=== PATIENT | female | born 1940 | race Caucasian/White ===

== ENCOUNTER → 2022-05-25 06:54 | Outpatient (CLI) | payer MEDICARE, MEDICAID, SELFPAY ==
--- NOTE | 2022-05-25 08:41 | HMH.ITSHM ---
Current Home Medications as stated by this patient Belkis Nuñez or insurance healthcare representative. []TRAMADOL SIMVASTATIN OBYBUTYNIN OMEPRAZOLE MAGNESIUM FUROSEMIDE DOCUSATE VITAMIN D3 ASA ACETAMINOPHEN
[2022-05-25 11:10] LABS: Anion Gap 9.2 mEq/L (5-15); Blood Urea Nitrogen 21 mg/dl (7-17); Calcium 8.9 mg/dl (8.4-10.2); Carbon Dioxide 28 mmol/L (22.0-30.0); Chloride 102 mmol/L (98-107); Estimated Glomerular Filt Rate 60 ml/min (>60); GFR (African American) 73 ML/MIN (>60); Glucose 120 mg/dl (74-100); Potassium 4.2 mmoL/L (3.5-5.1); Sodium 135 mmol/L (136-145)
== END ==
PROVIDERS: PCP Emergency Medicine; Visit Provider Nurse Practitioner Family
DX: E78.5 Hyperlipidemia, unspecified (principal); R60.0 Localized edema; R63.5 Abnormal weight gain; R94.31 Abnormal electrocardiogram [ECG] [EKG]
CPT/HCPCS: 36415; 78452; 80048; 93017; 93306; A9502; J2785

== ENCOUNTER 2023-11-16 06:04 | Inpatient (IN) | payer MEDICARE, MEDICAID, SELFPAY ==
[2023-11-16] VITALS (58 sets, daily range): BP systolic 83–128; BP diastolic 48–87; PULSE 72–121; RESP 16–22; TEMP 36.8–39; O2SAT 60–100; BMI 27.6
[2023-11-16] MEDS: ETOMIDATE 40MG/20ML VIAL 30 MG IV (06:02)
--- NOTE | 2023-11-16 06:03 | ECG_ITS ---
APPROVED REPORT Exam: Resting ECG HR:112 bpm ECG Measurements Heart Rate 112 AXES NH 170 P 68 QRSd 86 QRS -30 QT 334 T 69 QTc 400 Conclusion SINUS TACHYCARDIA Atrial abnormality POSSIBLE ANTERIOR MYOCARDIAL INFARCTION , PROBABLY OLD [30 ms Q WAVE IN V3/V4, OR R < 0.2 mV IN V4] ABNORMAL RHYTHM ECG UNCONFIRMED REPORT Electronically signed by : Ismael Rangel MD 11/17/2023 07:49:15
--- NOTE | 2023-11-16 06:05 | XR_ITS ---
PROCEDURE INFORMATION: Exam: XR Chest Exam date and time: 11/16/2023 6:02 AM Age: 83 years old Clinical indication: Shortness of breath; Additional info: SOA TECHNIQUE: Imaging protocol: Radiologic exam of the chest. Views: 1 view. COMPARISON: No relevant prior studies available. FINDINGS: Tubes, catheters and devices: An endotracheal catheter is noted with its tip around the level just below the thoracic inlet. Lungs: There is patchy airspace disease and interstitial thickening in the right lung base. Pleural spaces: Unremarkable. No pleural effusion. No pneumothorax. Heart/Mediastinum: Unremarkable. No cardiomegaly. Bones/joints: Unremarkable. IMPRESSION: Right basilar pneumonia.
[2023-11-16] MEDS: IPRATROPIUM/ALBUTEROL 3 ML NEB 9 ML IH (06:20)
[2023-11-16 06:25] LABS: Basophils # 0.1 K/mm3 (0-0.2); Basophils % 0.4 % (0.1-2.0); Eosinophils # 0.1 K/mm3 (0.0-0.4); Eosinophils % 0.4 % (0.1-12.0); Hematocrit 42.8 % (37.0-47.0); Hemoglobin 14.2 g/dL (12.2-16.2); Lymphocytes # 1.6 K/mm3 (0.7-4.5); Lymphocytes % 6.9 % (10-50); Mean Corpuscular HGB Conc 33.3 g/dL (31.8-35.4); Mean Corpuscular Hemoglobin 30.7 pg (27.0-31.2); Mean Corpuscular Volume 92.1 fl (81-99); Mean Platelet Volume 8.4 fl (7.4-10.4); Monocytes # 0.3 K/mm3 (0.1-1.0); Monocytes % 1.4 % (1.7-9.3); Neutrophils # 20.5 K/mm3 (1.8-7.8); Neutrophils % 90.9 % (37.0-80.0); Platelet Count 343 K/mm3 (142-424); Red Blood Count 4.64 M/mm3 (4.20-5.40); Red Cell Distribution Width 13.9 % (11.5-17.5); White Blood Count 22.6 K/mm3 (4.8-10.8)
[2023-11-16 06:25] LABS: VBG Base Excess -7.6 mmol/L (-2.4-2.3); VBG HCO3 19.7 mmol/L (23-30); VBG Oxygen Saturation 89.2 % (50-70); VBG PCO2 46.9 mmol/L (35-51); VBG PH 7.24 mmol/L (7.31-7.41); VBG PO2 63.3 mmol/L (28-40); VBG Total CO2 21.2 mmol/L (23-27)
[2023-11-16 06:27] LABS: MANUAL DIFFERENTIAL MANUAL DIFFERENTIAL (MANUAL DIFF)
--- NOTE | 2023-11-16 06:30 | XR_ITS ---
PROCEDURE INFORMATION: Exam: XR Chest Exam date and time: 11/16/2023 6:17 AM Age: 83 years old Clinical indication: Device placement; Ng tube; Additional info: Og tube placement TECHNIQUE: Imaging protocol: Radiologic exam of the chest. Views: 1 view. COMPARISON: CR XR CHEST PORTABLE 11/16/2023 6:02 AM FINDINGS: Tubes, catheters and devices: An endotracheal catheter seen with its tip overlying the level just below the thoracic inlet. An enteric catheter extends to the abdomen, tip overlying left upper quadrant. Lungs: There is peripheral opacity in the left upper lobe. Pleural spaces: Unremarkable. No pleural effusion. No pneumothorax. Heart/Mediastinum: Unremarkable. No cardiomegaly. Bones/joints: Unremarkable. IMPRESSION: Support lines and catheters in place as described. Apparent interval development of left upper lobe consolidation.
[2023-11-16] MEDS: SUCCINYLCHOLINE 20MG/ML 10 ML MDV 100 MG IV (06:39)
[2023-11-16] MEDS: propofoL 100 ML 4.65000000000000036 MG IV (06:39)
[2023-11-16] MEDS: VANCOMYCIN CONSULT REQUEST 1 EACH NOTAPPLIC (06:43)
--- NOTE | 2023-11-16 06:44 | PC.NURSE ---
30 of etomidate given at 602 100 of succ given at 602 [place]ub[place] [address] Contreras with a 7.5 ET Tube 7.5 at the lip.
[2023-11-16 06:45] LABS: Lymphocytes % 8 % (10-50); Monocytes % 1 % (2-9); Neutrophils % 91 % (42-76); Platelet Estimate Normal; RBC Morphology Normal; Total Cells Counted 100
[2023-11-16 06:46] LABS: Chloride 103 mmol/L (98-107); Sodium 138 mmol/L (136-145)
[2023-11-16 06:47] LABS: Potassium 4.3 mmoL/L (3.5-5.1)
[2023-11-16] MEDS: METRONIDAZ/SOD CHL 500 MG/100 ML PIGGYBACK 100 MG IV (06:47)
[2023-11-16] MEDS: METHYLPREDNISOLONE SOD SUCC 125MG VIAL 125 MG IV (06:47)
[2023-11-16 06:49] LABS: Alanine Aminotransferase 52 U/L (12-78); Albumin Level 4.2 g/dl (3.5-5.0); Alkaline Phosphatase 93 U/L (38-126); Anion Gap 17.3 mEq/L (5-15); Aspartate Amino Transferase 72 U/L (14-36); Bilirubin,Direct 0.3 mg/dl (0.0-0.4); Bilirubin,Total 1.3 mg/dl (0.2-1.3); Blood Urea Nitrogen 18 mg/dl (7-17); Calcium 8.2 mg/dl (8.4-10.2); Carbon Dioxide 22 mmol/L (22.0-30.0); Creatinine Clearance Estimated 52 mL/min (50-200); Estimated Glomerular Filt Rate 60 ml/min (>60); GFR (African American) 72 ML/MIN (>60); Glucose 205 mg/dl (74-100); Total Protein,Serum 7.5 g/dl (6.3-8.2)
[2023-11-16 06:50] LABS: Magnesium 1.8 mg/dl (1.6-2.3)
--- NOTE | 2023-11-16 06:51 | ED_ITS ---
Discharge Plan Disposition Condition: Critical Chief Complaint: Shortness of Breath/Dyspnea Prescriptions Prescriptions: No Action Tylenol Extra Strength 500 mg powder in packet 500 mg PO Q4H PRN polyethylene glycol 3350 [Miralax] 17 gram powder in packet 17 g PO DAILY dextromethorphan-guaifenesin [Robafen DM Cough-Chest Congest] 10-100 mg/5 mL syrup 10 ml PO Q4H PRN aspirin 81 mg tablet,chewable 81 mg PO DAILY omeprazole 40 mg capsule,delayed release(DR/EC) 40 mg PO DAILY oxybutynin chloride 5 mg tablet 5 mg PO BID simvastatin 40 mg tablet 40 mg PO HS cholecalciferol (vitamin D3) 10 mcg (400 unit) capsule 10 mcg PO DAILY furosemide [Lasix] 20 mg tablet 20 mg PO DAILY Qty: 90 3RF Gaviscon 95-358 mg/15 mL suspension 30 ml PO BID PRN lactulose 10 gram/15 mL solution 20 g PO DAILY PRN (Reason: constipation) dextromethorphan-guaifenesin [Robafen DM Cough-Chest Congest] 10-100 mg/5 mL syrup 10 ml PO Q4H PRN (Reason: cough) magnesium oxide [MagOx] 400 mg (241.3 mg magnesium) tablet 400 mg PO BID multivitamin Tablet 1 tab PO DAILY sennosides-docusate sodium [Senexon-S] 8.6-50 mg tablet 2 tab-cap PO BID ascorbate calcium (vitamin C) 500 mg tablet 500 mg PO BID tramadol 50 mg tablet 50 mg PO BID PRN (Reason: pain) Qty: 60 0RF Referrals Follow up/Referrals: Provider,Referral, MD [Primary Care Provider] - See instructions Clinical Impressions Clinical Impression: Acute hypoxemic respiratory failure, Sepsis, Nausea & vomiting, Acidosis, lactic Discharge ED Provider: Tyra Contreras HPI General Chief Complaint: Shortness of Breath/Dyspnea Stated Complaint: low o2 Time Seen by Provider: 11/16/23 06:06 Mode of Arrival: EMS Source of Information: EMS Limitations: Altered Mental Status Description of Symptoms (Recalled from ER Triage Doc. by RN): Patient came from [facility] for possible aspiration and difficulty breathing. Patient was in resp distress and AMS on arrival. History of Present Illness HPI narrative: This patient is an 83-year-old female with a history of type 2 diabetes, hypertension, hyperlipidemia, renal insufficiency, incontinence, failure to thrive, bilateral lower extremity edema, and general debility presenting to the emergency department from intermediate for evaluation with concern for respi ratory distress. According to report called from the nursing facility, the patient was rounded on this morning was found to be in significant respiratory distress. She had vomited multiple times during the night and they were concerned that she had potentially aspirated. They noted that her oxygen saturation on room air was in the 40s. They stated they were unable to machine operator picker an oxygen saturation once they put her on oxygen. They called EMS, who noted that when they arrived on scene, the patient was in obvious respiratory distress with a respiratory rate in the 50s. She was hypoxic with oxygen saturation of 80% on 6 L nasal cannula, so they put her on CPAP mask. EMS notes that she was initially able to answer questions, however her mental status declined rapidly upon arrival. Patient is unable to contribute to history given acuity of condition. According to the intermediate, the patient is a full code and is typically alert and oriented x 3. Her daughter in [place] is her power of commercial attorney. Related Data Home Medications Medication Instructions Recorded Confirmed acetaminophen 500 mg oral powder 500 mg PO Q4H PRN 05/09/22 02/20/23 packet (Tylenol Extra Strength) aspirin 81 mg chewable tablet 81 mg PO DAILY 05/09/22 02/20/23 cholecalciferol (vitamin D3) 10 10 mcg PO DAILY 05/09/22 02/20/23 mcg (400 unit) capsule dextromethorphan-guaifenesin 10 10 ml PO Q4H PRN 05/09/22 02/20/23 mg-100 mg/5 mL oral syrup (Robafen DM Cough-Chest Congestion) omeprazole 40 mg capsule,delayed 40 mg PO DAILY 05/09/22 02/20/23 release oxybutynin chloride 5 mg tablet 5 mg PO BID 05/09/22 02/20/23 polyethylene glycol 3350 17 gram 17 g PO DAILY 05/09/22 02/20/23 oral powder packet (Miralax) simvastatin 40 mg tablet 40 mg PO HS 05/09/22 02/20/23 aluminum hydrox-magnesium carb 95 30 ml PO BID PRN 10/27/23 mg-358 mg/15 mL oral suspension (Gaviscon) ascorbate calcium (vitamin C) 500 500 mg PO BID 10/27/23 mg tablet dextromethorphan-guaifenesin 10 10 ml PO Q4H PRN cough 10/27/23 mg-100 mg/5 mL oral syrup (Robafen DM Cough-Chest Congestion) lactulose 10 gram/15 mL oral 20 g PO DAILY PRN constipation 10/27/23 solution magnesium oxide 400 mg (241.3 mg 400 mg PO BID 10/27/23 magnesium) tablet (MagOx) multivitamin 1 tab PO DAILY 10/27/23 sennosides 8.6 mg-docusate sodium 2 tab-cap PO BID 10/27/23 50 mg tablet (Senexon-S) Previous Rx's Medication Instructions Recorded furosemide 20 mg tablet (Lasix) 20 mg PO DAILY #90 tabs 05/09/22 tramadol 50 mg tablet 50 mg PO BID PRN pain #60 tabs 11/16/23 Allergies Allergy/AdvReac Type Severity Reaction Status Date / Time meloxicam [From Mob] AdvReac Verified 10/27/23 10:59 Penicillins AdvReac Verified 10/27/23 10:59 PFSH [facility] Disclaimer: The information contained in this section may have been updated after the patient was seen, as this information can be updated by other users. Medical History Constipation Diabetes mellitus Difficulty walking Failure to thrive Gastroesophageal reflux disease Hyperlipidemia Incontinence in female Malnutrition Pressure ulcer Renal failure Tobacco use Social History Smoking Status: Unknown if ever smoked alcohol intake: never current occupational status: retired Travel in the last 8 weeks: None household members: caregiver housing: intermediate ROS Obtained: Yes unobtainable due to mental status Physical Exam General General appearance: lethargic and in distress Comment: Initially responded to voice and answered with her name, became unresponsive and did not follow commands shortly after arrival. Critically ill with acute respiratory distress Head Head exam: atraumatic and normocephalic Eye Eye exam: Present normal appearance, PERRL and EOMI ENT ENT exam: Present mucous membranes dry Neck Neck exam: Present normal inspection Chest Chest inspection: Present normal inspection and symmetric chest wall rise Respiratory Respiratory exam: Present respiratory distress, wheezes, accessory muscle use, prolonged expiratory phase and other (Tachypnea on CPAP per EMS, bilateral wheezing with coarse ronchi in RLL) Cardiovascular Cardiovascular exam: Present normal rhythm and tachycardia Abdominal Exam Abdominal exam: Present soft; Absent distention, tenderness, guarding or rebound Extremities Exam Extremities exam: Present edema (BLE edema noted) Back Exam Back exam: Present normal inspection Neurological Exam Neurological exam: Absent alert Expanded Neurological Exam Coma scale eye opening: To pain Coma scale motor response: Withdraws to pain Coma scale verbal response: Incomprehensible Coma scale total: 8 Skin Skin exam: Present warm and dry HEART Score HEART Score HEART Score assessment performed?: Yes History (anamnesis): Moderately suspicious ECG: Non-specific disturbance Age: >65 years Risk factors: 3 or more risk factors Troponin: </= normal limit HEART Score: 6 Procedures Intubation Mallampati Score:: Class II Time out performed: Yes sedative: Etomidate Mg Given: 30 paralytic: Succinylcholine Mg Given: 100 Laryngoscope: other (video-assisted) ET Tube Size: 7.5 ET Tube Uncuffed: No Tube Secured Depth (cm): 20 Tube Secured Location: lips Tube Placement Confirmation: visualized tube passing through cords, equal breath sounds bilaterally, no breath sounds over epigastrium and confirmation by capnometry Patient Tolerated Procedure: well and no complications Intubation Complications: none Critical Care Critical Care Time Critical Care Time: Yes Attestation: On 11/16/23, the high probability of a clinically significant, sudden or life th reatening deterioration of the following system(s) (respiratory, cardiovascular, neurologic, gastrointestinal) required my full and direct attention, intervention and personal management. The time I documented below is in addition to time spent performing reported procedures but includes the following listed in this critical care notation. Total Time Total Critical Care Time: 65 Medical Decision Making Medical Records Medical records reviewed: Yes I reviewed the patient's medical records. Surya Inquiry Pt receiving controlled substance: No Vital Signs Vital Signs: 11/16/23 06:04 11/16/23 06:20 11/16/23 06:20 Temperature 102.2 F H Temperature Source Rectal Pulse Rate 118 H 112 H Pulse Rate [Radial] 115 H Respiratory Rate 18 Blood Pressure [Right Arm] 122/67 Blood Pressure Mean [Right Arm] 85 Blood Pressure Source [Right Arm] Automatic Cuff Blood Pressure Position [Right Arm] Supine 02 Sat by Pulse Oximetry 95 Oxygen Delivery Method Mechanical Ventilation 11/16/23 06:10 Temperature Temperature Source Pulse Rate Pulse Rate [Radial] Respiratory Rate 18 Blood Pressure [Right Arm] Blood Pressure Mean [Right Arm] Blood Pressure Source [Right Arm] Blood Pressure Position [Right Arm] 02 Sat by Pulse Oximetry 97 Oxygen Delivery Method Lab Data Labs: Lab Results 11/16/23 06:00: WBC 22.6 H*, RBC 4.64, Hgb 14.2, Hct 42.8, MCV 92.1, MCH 30.7, MCHC 33.3, RDW 13.9, Plt Count 343, MPV 8.4, Neut % (Auto) 90.9 H, Lymph % (Auto) 6.9 L, [place] % (Auto) 1.4 L, Eos % (Auto) 0.4, Baso % (Auto) 0.4, Neut # (Auto) 20.5 H, Lymph # (Auto) 1.6, [place] # (Auto) 0.3, Eos # (Auto) 0.1, Baso # (Auto) 0.1, Total Counted 100, Neutrophils % (Manual) 91 H, Lymphocytes % (Manual) 8 L, Monocytes % (Manual) 1 L, Platelet Estimate Normal, RBC Morphology Normal, Sodium 138, Potassium 4.3, Chloride 103, Carbon Dioxide 22, Anion Gap 17.3 H, BUN 18 H, Creatinine 0.90, Estimated Creat Clear 52, Estimated GFR 60, Est GFR ( Amer) 72, Glucose 205 H, Lactate 4.4 H, Calcium 8.2 L, Magnesium 1.8, Total Bilirubin 1.3, Direct Bilirubin 0.3, Conjugated Bilirubin 0.0, Indirect Bilirubin 1.0 H, Unconjugated Bilirubin 1.0, AST 72 H, ALT 52, Alkaline Phosphatase 93, Troponin I < 0.01, NT-Pro-B Natriuret Pep 591 H, Total Protein 7.5, Albumin 4.2 11/16/23 06:05: VBG pH 7.24 L, VBG pCO2 46.9, VBG pO2 63.3 H, VBG HCO3 19.7 L, VBG Total CO2 21.2 L, VBG O2 Saturation 89.2 H, VBG Base Excess -7.6 L 11/16/23 07:10: Specimen Source L brachial, O2 % 60%, ABG pH 7.44, ABG pCO2 25.9 L, ABG pO2 97.6, ABG HCO3 17.0 L, ABG Total CO2 17.8 L, ABG O2 Saturation 98, ABG Base Excess -7.2 L, Vent Rate 18, Tidal Volume 420, PEEP 8 11/16/23 06:00 11/16/23 06:00 Response Orders (Tests/Meds): ED MEDICATIONS Generic Name Dose Route Start Last Admin Trade Name Freq PRN Reason Stop Dose Admin Propofol 100 mls @ 4.654 mls/hr 11/16/23 06:15 11/16/23 06:45 Diprivan 10mg/Ml 100ml Bottle IV 12/16/23 06:14 30 mcg/kg/min .[id number] YARI 13.96 mls/hr Titration Protocol 10 MCG/KG/MIN Metronidazole 500 mg in 100 mls @ 100 mls/hr 11/16/23 06:38 11/16/23 06:47 Flagyl 500mg/100ml Ivpb IV 11/16/23 07:37 100 mls/hr ONCE ONE Administration Vancomycin/PEG/NADA/Lysine/Water 1.5 gm in 300 mls @ 150 mls/hr 11/16/23 07:00 Vancomycin 1.5gm/300ml (Peg) Premix IV 11/16/23 08:59 ONCE ONE Lactated Ringer's 1,000 mls @ 999 mls/hr 11/16/23 07:00 Lactated Ringer's 1000 Ml Bag IV 11/16/23 08:00 .Q1H1M ONE Miscellaneous 1 each 11/16/23 06:45 11/16/23 06:43 Vancomycin Consult Request NOTAPPLIC 12/16/23 06:44 1 each [facility] Administration Sodium Chloride 3 ml 11/16/23 06:18 Sodium Chloride 3% 15ml [facility] 12/16/23 06:17 ONCE PRN INDUCE SPUTUM COLLECTION Discontinued Medications Generic Name Dose Route Start Last Admin Trade Name Freq PRN Reason Stop Dose Admin Acetaminophen 1,000 mg 11/16/23 06:48 Acetaminophen 1,000mg/100ml Vial IV 11/16/23 06:49 ONCE ONE Albuterol/Ipratropium 9 ml 11/16/23 06:17 11/16/23 06:20 Ipratropium/Albuterol 3 Ml [facility] 11/16/23 06:18 9 ml ONCE ONE Administration Etomidate 30 mg 11/16/23 06:05 11/16/23 06:02 Etomidate 40mg/20ml Vial IV 11/16/23 06:06 30 mg ONCE ONE Administration Cefepime HCl 2 gm/ Sodium 100 mls @ 200 mls/hr 11/16/23 06:33 Chloride IV 11/16/23 07:02 ONCE ONE Methylprednisolone Sodium Succinate 125 mg 11/16/23 06:17 11/16/23 06:47 Methylprednisolone Sod Succ 125mg Vial IV 11/16/23 06:18 125 mg ONCE ONE Administration Succinylcholine Chloride 100 mg 11/16/23 06:05 11/16/23 06:39 Succinylcholine 20mg/Ml 10 Ml Mdv IV 11/16/23 06:06 100 mg ONCE ONE Administration ORDERS Category Date Time Status XR chest portable Stat Exams 11/16/23 06:05 Taken XR chest portable Stat Exams 11/16/23 06:30 Taken BNP [Brain Natriuretic Peptide] Stat Lab 11/16/23 06:00 Completed Basic Metabolic Panel Stat Lab 11/16/23 06:00 Completed Complete Blood Count Auto Diff Stat Lab 11/16/23 06:00 Completed D-Dimer Stat Lab 11/16/23 06:00 Received Lactic Acid Stat Lab 11/16/23 06:00 Completed Liver Panel Stat Lab 11/16/23 06:00 Completed Magnesium Stat Lab 11/16/23 06:00 Completed Rapid PCR Covid and Flu A/B Stat Lab 11/16/23 06:34 Received Troponin I Q3H Lab 11/16/23 09:15 Ordered Troponin I Q3H Lab 11/16/23 12:15 Ordered Troponin I Stat Lab 11/16/23 06:00 Completed Blood Culture Stat Micro 11/16/23 06:34 Received Sputum Culture & Gram Stain Stat Micro 11/16/23 06:12 Received Arterial Blood Gas Routine RT 11/16/23 07:10 Completed Venous Blood Gas Stat RT 11/16/23 06:05 Completed 12-lead EKG Request [ECG Request] NEEDED Y 11/16/23 06:45 Stop Req 12-lead EKG Request [ECG Request] Stat Y 11/16/23 06:41 Ordered ECG Request Routine Y 11/16/23 06:41 Stop Req ECG Data Tracing #1: Attestation: I reviewed this ECG and interpreted as documented below: ECG Narrative: Sinus rhythm with a ventricular rate of 112 bpm. Significant motion artifact noted given respiratory distress. No obvious acute ST elevations concerning for STEMI ECG initial impression date: 11/16/23 ECG initial impression time: 06:05 [facility] Narrative Medical Decision Narrative: In summary, this patient is a 83-year-old female presenting to the Emergency Department for evaluation of respiratory distress in the setting of vomiting overnight. Differential diagnoses considered include but are not limited to aspiration pneumonia, respiratory failure, flash pulmonary edema, CHF exacerbation, COPD exacerbation, ACS, PE. Ruling out the most morbid conditions drove assessment. It should be noted patient's history includes type 2 diabetes, hypertension, hyperlipidemia, failure to thrive, bilateral lower extremity edema, and tobacco use which may or may not be at goal therapy. This complicates all aspects of care by increasing patient's risk for morbidity. On exam, patient arrives in acute distress with obvious respiratory failure. Her mental status rapidly declined upon arrival, and the patient became unresponsive. She is critically ill. Given this, decision was made to intubate the patient, as her paperwork states that she is a full code. Patient was intubated with RSI with etomidate and succinylcholine. She tolerated this well. 7.5 ET tube was placed at 20 at the lip. Placement was confirmed with chest x- ray and auscultation as well as end-tidal. Patient's sedation was continued with propofol. Given patient's diffuse wheezing, she was given 3 DuoNebs and IV methylprednisolone. This did improve her respiratory status. I was able to wean her down from 80% FiO2 to 60% FiO2 as well as a PEEP of 8, tidal volume of 420, respiratory rate of 16 (down from initial of 18). She is febrile, so she was given IV acetaminophen. NG and rodriguez were placed. Workup included broad lab evaluation including cardiac, infectious, and metabolic workup as well as CXR and EKG. I independently interpreted x-ray prior to the radiologist read and noted for ET tube placement with hazy consolidation, worse in the right lower lung base. Please see their read for final interpretation. Labs were obtained that demonstrated leukocytosis, elevated lactic acid, and slightly elevated anion gap. She has a metabolic acidosis. She was given 1 L bolus of IV fluids, but full sepsis bolus was not administered despite her triggering sepsis criteria because she has bilateral lower extremity edema and I fear that this would lead to volume overload and further respiratory compromise. Given concerns for sepsis, patient was given IV vancomycin, cefepime, and Flagyl. Blood cultures are pending at this time. On multiple subsequent reassessments, patient is tolerating sedation with propofol well. She is maintaining oxygen saturation in the high 90s, and I was able to wean her ventilator settings and FiO2 of 40%. I called and updated the patient's daughter (POA) as to plan of care twice. Given the patient's critical illness and need for ICU admission for intubation, I called and had an interactive discussion with Dr. Dawson who graciously excepted the patient for admission. Patient was admitted in stable condition for further evaluation and management.
[2023-11-16 06:59] LABS: NT Pro Brain Natriuretic Pep. 591 pg/mL (0-450)
--- NOTE | 2023-11-16 07:01 | PC.NURSE ---
Critical Lab value of 4.4 phone call taken from the lab.
[2023-11-16 07:02] LABS: Lactic Acid 4.4 mmol/L (0.7-2.1)
[2023-11-16 07:03] LABS: Troponin I < 0.01 ng/ml (0.00-0.034)
[2023-11-16 07:08] LABS: Coronavirus 19, PCR Not Detected (NotDetected); Influenza A, PCR Not Detected (NotDetected); Influenza B, PCR Not Detected (NotDetected)
[2023-11-16 07:12] LABS: ABG Base Excess -7.2 mmol/L (-2.4-2.3); ABG Oxygen Saturation 98 % (90-100); ABG PCO2 25.9 mmhg (35.0-45.0); ABG PH 7.44 mmol/L (7.35-7.45); ABG PO2 97.6 mmhg (80-100); ABG TCO2 17.8 mmhg (23-27)
[2023-11-16 07:13] LABS: Oxygen 60% %; PEEP 8; Source L BRACHIAL; Tidal Volume 420; Vent Rate 18
--- NOTE | 2023-11-16 07:32 | PC.NURSE ---
call made to care management for bed assignment
--- NOTE | 2023-11-16 07:35 | P.HP_ITS ---
History of Present Illness *Admission Date: 11/16/23 *Reason for visit:: respiratory distress, aspiration *History of present illness: Ms. Nuñez is an 83-year-old female who is a resident at [facility]. Presented to the ER via EMS with concern for aspiration and respiratory failure. Was in acute respiratory distress on arrival. History obtained through chart review and discussion with the ER physician. Patient intubated by the time of my interview and interaction with patient. Per ER, patient has a history of type 2 diabetes, hypertension, hyperlipidemia, renal insufficiency, incontinence, failure to thrive, bilateral lower extremity edema, and general debility presenting to the emergency department from detention for evaluation with concern for respiratory distress. According to report called from the nursing facility, the patient was rounded on this morning was found to be in significant respiratory distress. She had vomited multiple times during the night and they were concerned that she had potentially aspirated. They noted that her oxygen saturation on room air was in the 40s. They stated they were unable to pickling solution maker an oxygen saturation once they put her on oxygen. They called EMS, who noted that when they arrived on scene, the patient was in obvious respiratory distress with a respiratory rate in the 50s. She was hypoxic with oxygen saturation of 80% on 6 L nasal cannula, so they put her on CPAP mask. EMS notes that she was initially able to answer questions, however her mental status declined rapidly upon arrival. Patient is unable to contribute to history given acuity of condition. According to the detention, the patient is a full code and is typically alert and oriented x 3. Her daughter in [place] is her power of group reservations coordinator. Patient animated in the ER. Chest imaging with x-ray concerning for right lower lobe pneumonia. CT obtained given elevated D-dimer showing right lower lobe airspace disease. No ebonie obstruction of bronchi. [facility] Disclaimer: The information contained in this section may have been updated after the patient was seen, as this information can be updated by other users. Medical History Acute respiratory failure with hypoxia Constipation Diabetes mellitus Difficulty walking Failure to thrive Gastroesophageal reflux disease Hyperlipidemia Incontinence in female Malnutrition On mechanically assisted ventilation Pneumonia Pressure ulcer Renal failure Tobacco use Family History No significant family history Social History Smoking Status: Unknown if ever smoked alcohol intake: never current occupational status: retired Travel in the last 8 weeks: None household members: caregiver housing: detention Review of Systems Review of Systems Review of systems:: unable to obtain Meds Home Medications and Allergies Home Medications Medication Instructions Recorded Confirmed Type aspirin 81 mg chewable tablet 81 mg PO DAILY 05/09/22 11/16/23 History dextromethorphan-guaifenesin 10 10 ml PO Q4HP PRN Cough 05/09/22 11/16/23 History mg-100 mg/5 mL oral syrup (Robafen DM Cough-Chest Congestion) furosemide 20 mg tablet (Lasix) 20 mg PO DAILY #90 tabs 05/09/22 11/16/23 Rx omeprazole 40 mg capsule,delayed 40 mg PO DAILY 05/09/22 11/16/23 History release oxybutynin chloride 5 mg tablet 5 mg PO BID 05/09/22 11/16/23 History polyethylene glycol 3350 17 gram 17 g PO DAILYP PRN Constipation 05/09/22 11/16/23 History oral powder packet (Miralax) simvastatin 40 mg tablet 40 mg PO HS 05/09/22 11/16/23 History aluminum hydrox-magnesium carb 95 30 ml PO DAILY 10/27/23 11/16/23 History mg-358 mg/15 mL oral suspension (Gaviscon) lactulose 10 gram/15 mL oral 30 ml PO DAILYP PRN constipation 10/27/23 11/16/23 History solution magnesium oxide 400 mg (241.3 mg 400 mg PO BID 10/27/23 11/16/23 History magnesium) tablet (MagOx) multivitamin 1 tab PO DAILY 10/27/23 11/16/23 History sennosides 8.6 mg-docusate sodium 2 tab-cap PO BID 10/27/23 11/16/23 History 50 mg tablet (Senexon-S) acetaminophen 500 mg tablet 500 mg PO Q4HP PRN Pain 11/16/23 11/16/23 History cholecalciferol (vitamin D3) 10 10 mcg PO DAILY 11/16/23 11/16/23 History mcg (400 unit) tablet tramadol 50 mg tablet 50 mg PO BID 11/16/23 11/16/23 History New Prescriptions to Start Prescriptions: Allergies Allergy/AdvReac Type Severity Reaction Status Date / Time meloxicam [From Mob] AdvReac Verified 11/16/23 09:11 Penicillins AdvReac Verified 11/16/23 09:11 Exam Data for Last 24 hours Vital signs and Labs for Last 24 Hours: Temp Pulse Resp BP Pulse Ox O2 Del Method FiO2 102.2 F H 112 H 18 122/67 60 L Mechanical Ventilation 80 11/16/23 06:04 11/16/23 06:20 11/16/23 06:10 11/16/23 06:04 11/16/23 06:20 11/16/23 06:04 11/16/23 06:10 Laboratory Results - last 24 hr 11/16/23 06:00: WBC 22.6 H*, RBC 4.64, Hgb 14.2, Hct 42.8, MCV 92.1, MCH 30.7, MCHC 33.3, RDW 13.9, Plt Count 343, MPV 8.4, Neut % (Auto) 90.9 H, Lymph % (Auto) 6.9 L, [place] % (Auto) 1.4 L, Eos % (Auto) 0.4, Baso % (Auto) 0.4, Neut # (Auto) 20.5 H, Lymph # (Auto) 1.6, [place] # (Auto) 0.3, Eos # (Auto) 0.1, Baso # (Auto) 0.1, Total Counted 100, Neutrophils % (Manual) 91 H, Lymphocytes % (Manual) 8 L, Monocytes % (Manual) 1 L, Platelet Estimate Normal, RBC Morphology Normal, Sodium 138, Potassium 4.3, Chloride 103, Carbon Dioxide 22, Anion Gap 17.3 H, BUN 18 H, Creatinine 0.90, Estimated Creat Clear 52, Estimated GFR 60, Est GFR ( Amer) 72, Glucose 205 H, Lactate 4.4 H, Calcium 8.2 L, Magnesium 1.8, Total Bilirubin 1.3, Direct Bilirubin 0.3, Conjugated Bilirubin 0.0, Indirect Bilirubin 1.0 H, Unconjugated Bilirubin 1.0, AST 72 H, ALT 52, Alkaline Phosphatase 93, Troponin I < 0.01, NT-Pro-B Natriuret Pep 591 H, Total Protein 7.5, Albumin 4.2 11/16/23 06:05: VBG pH 7.24 L, VBG pCO2 46.9, VBG pO2 63.3 H, VBG HCO3 19.7 L, VBG Total CO2 21.2 L, VBG O2 Saturation 89.2 H, VBG Base Excess -7.6 L 11/16/23 07:10: Specimen Source L brachial, O2 % 60%, ABG pH 7.44, ABG pCO2 25.9 L, ABG pO2 97.6, ABG HCO3 17.0 L, ABG Total CO2 17.8 L, ABG O2 Saturation 98, ABG Base Excess -7.2 L, Vent Rate 18, Tidal Volume 420, PEEP 8 I & O for Last 24 hours: Intake & Output 11/13/23 11/14/23 11/15/23 11/16/23 23:59 23:59 23:59 23:59 Intake Total 0.465 / 0.465 Balance 0.465 / 0.465 Weight 77.564 kg Constitutional Constitutional: mild distress, chronically ill appearing and obtunded *Routine HEENT Exam Head: Present normocephalic and atraumatic Eye: Present PERRL ENT: Present mucous membranes moist *Routine Neck Exam Neck: Present supple Comments: Trachea midline *Routine Respiratory Exam Respiratory: Present patient mechanically ventilated, wheezes and crackles (Right posterior lower lung field); Absent accessory muscle use or rhonchi *Routine Cardiovascular Exam Cardiovascular: Present RRR, Normal S1 and Normal S2 *Routine Abdominal Exam Abdominal: Present soft and normoactive bowel sounds; Absent tenderness *Routine Rectal Exam Rectal:: other Comments:: Presence of hemorrhoids, no bleeding. *Routine Genitalia Exam Genitalia:: normal female Comment:: Severino catheter in place *Routine Extremities Exam Extremities: Present edema (Trace bilateral lower extremity); Absent cyanosis or clubbing *Routine Skin Exam Skin: Present intact; Absent cyanosis or erythema *Routine Neurological Exam Comments: Patient sedated and intubated Assessment and Plan *Assessment and plan (1) Septic shock: Status: Acute Category: Medical Code(s): A41.9 - Sepsis, unspecified organism; R65.21 - Severe sepsis with septic shock (2) Acute hypoxemic respiratory failure: Status: Acute Category: Medical Code(s): J96.01 - Acute respiratory failure with hypoxia (3) Nausea & vomiting: Status: Acute Category: Medical Code(s): R11.2 - Nausea with vomiting, unspecified (4) Aspiration pneumonia: Status: Acute Category: Medical Code(s): J69.0 - Pneumonitis due to inhalation of food and vomit (5) Diabetes mellitus: Status: Chronic Qualifiers: Diabetes mellitus complication status: with other specified complication Diabetes mellitus type: type 1 Qualified Code(s): E10.69 - Type 1 diabetes mellitus with other specified complication Category: Medical Code(s): E11.9 - Type 2 diabetes mellitus without complications (6) Hyperlipidemia: Status: Chronic Qualifiers: Hyperlipidemia type: mixed hyperlipidemia Qualified Code(s): E78.2 - Mixed hyperlipidemia Category: Medical Code(s): E78.5 - Hyperlipidemia, unspecified Plan 83-year-old female who presented in respiratory distress to the ER. Discussed case with ER physician, request admission to ICU for further management of septic shock, respiratory failure, ventilator management. Patient necessitating IV antibiotics and critical care. Medicine agreed to admit. Pulmonology consulted to assist with critical care and ventilator management. Problems addressed as follows: Septic shock Aspiration pneumonia Acute hypoxic respiratory failure -Patient intubated for impending respiratory failure. Hypoxic on room air. Unable to protect airway. Meeting septic shock criteria with fever, tachycardia, leukocytosis of 22,000, pneumonia on chest imaging, and lactate of 4.4. Receiving 1 L IV fluids due to normotension and heart failure with edema. Will reevaluate need for further fluids. -Initiated on broad-spectrum antibiotics with vancomycin, cefepime, Flagyl. Continue and monitor for toxicity. -CTA of chest performed, consolidation of right lower lobe. Personally reviewed -Pulmonology consulted, appreciate their assistance in care. Vent settings currently volume of 420, rate of 16, PEEP of 5, FiO2 40%. Will discuss potential benefit of bronchoscopy given aspiration event -Repeat CBC, CMP, magnesium ordered for the morning. -Sputum sample, blood culture pending Myocardial injury -Initial troponin less than 0.01, repeat 0.09. In the setting of initiation of ventilator and septic shock, consistent with supply/demand mismatch. No changes on telemetry at this time concerning for ischemia. Will consider cardiology eval as patient improves for inpatient versus outpatient follow-up. Full code N.p.o. Lovenox 40 mg subcu daily
[2023-11-16] MEDS: ACETAMINOPHEN 1,000MG/100ML VIAL 1000 MG IV (07:44)
[2023-11-16] MEDS: LACTATED RINGERS 1000ML 1,000 ML 999 ML IV (07:44)
[2023-11-16 07:52] LABS: D-Dimer 1.37 ug/mL (0.0-0.5)
--- NOTE | 2023-11-16 07:58 | CT_ITS ---
FINAL REPORT TECHNIQUE: The patient was injected with IV contrast. Axial images were obtained through the chest in a PE protocol. 3-D reconstruction images were also performed. Individualized dose reduction techniques using automated exposure control or adjustment of the MA and/or KV according to patient's size were employed. CLINICAL HISTORY: elevated D-dimer, respiratory failure COMPARISON: None FINDINGS: An endotracheal tube is in place and properly positioned. A feeding tube tip is in the stomach. Mediastinal vasculature is adequately opacified. No pulmonary artery filling defects are identified to suggest PE. There is no aortic dissection. There is no axillary adenopathy. There is no hilar or mediastinal adenopathy. The heart size is normal. There are dense patchy bibasilar infiltrates consistent with pneumonia or aspiration. Limited images of the upper abdomen are unremarkable. IMPRESSION: No pulmonary embolus or dissection. Dense patchy bibasilar infiltrates consistent with pneumonia or aspiration. Reviewed, Interpreted and Dictated by Javier Sandoval MD Transcribed by Alia Nevarez Authenticated and . [facility]
--- NOTE | 2023-11-16 08:00 | PC.NURSE ---
report called to lex stack and sarahy rn
[2023-11-16] MEDS: IOPAMIDOL-370 (76%);100ML BOTTLE 100 ML IV (08:49)
[2023-11-16] MEDS: 0.9 % SODIUM CHLORIDE 50 ML VIAL IV (08:49)
[2023-11-16] MEDS: SODIUM CHLORIDE 0.9% 10ML SYR (RAD ONLY) 10 ML IV (08:49)
[2023-11-16] MEDS: CEFEPIME HCL 2 GM in 0.9 % SODIUM CHLORIDE 100 ML IV ×2 (09:33→20:58)
--- NOTE | 2023-11-16 09:35 | P.CONPHA_ITS ---
Pharmacy Consult Date: 11/16/23 Time: 09:00 Referring provider: Bakari MOYA Reason for Consult:: PHARMACY CONSULTED TO INITIATE AND MANAGE VANCOMYCIN THERAPY Allergies Allergy/AdvReac Type Severity Reaction Status Date / Time meloxicam [From Mobic] AdvReac Verified 11/16/23 09:11 Penicillins AdvReac Verified 11/16/23 09:11 Home Medications Medication Instructions Recorded Confirmed Type acetaminophen 500 mg oral powder 500 mg PO Q4H PRN 05/09/22 02/20/23 History packet (Tylenol Extra Strength) aspirin 81 mg chewable tablet 81 mg PO DAILY 05/09/22 02/20/23 History cholecalciferol (vitamin D3) 10 10 mcg PO DAILY 05/09/22 02/20/23 History mcg (400 unit) capsule dextromethorphan-guaifenesin 10 10 ml PO Q4H PRN 05/09/22 02/20/23 History mg-100 mg/5 mL oral syrup (Robafen DM Cough-Chest Congestion) furosemide 20 mg tablet (Lasix) 20 mg PO DAILY #90 tabs 05/09/22 02/20/23 Rx omeprazole 40 mg capsule,delayed 40 mg PO DAILY 05/09/22 02/20/23 History release oxybutynin chloride 5 mg tablet 5 mg PO BID 05/09/22 02/20/23 History polyethylene glycol 3350 17 gram 17 g PO DAILY 05/09/22 02/20/23 History oral powder packet (Miralax) simvastatin 40 mg tablet 40 mg PO HS 05/09/22 02/20/23 History aluminum hydrox-magnesium carb 95 30 ml PO BID PRN 10/27/23 History mg-358 mg/15 mL oral suspension (Gaviscon) ascorbate calcium (vitamin C) 500 500 mg PO BID 10/27/23 History mg tablet lactulose 10 gram/15 mL oral 20 g PO DAILY PRN constipation 10/27/23 History solution magnesium oxide 400 mg (241.3 mg 400 mg PO BID 10/27/23 History magnesium) tablet (MagOx) multivitamin 1 tab PO DAILY 10/27/23 History sennosides 8.6 mg-docusate sodium 2 tab-cap PO BID 10/27/23 History 50 mg tablet (Senexon-S) tramadol 50 mg tablet 50 mg PO BID PRN pain #60 tabs 11/16/23 Rx New Prescriptions to Start Prescriptions: Height: 1.65 m Weight: 75.381 kg Laboratory Results:: Laboratory Results - last 24 hr 11/16/23 06:00: WBC 22.6 H*, RBC 4.64, Hgb 14.2, Hct 42.8, MCV 92.1, MCH 30.7, MCHC 33.3, RDW 13.9, Plt Count 343, MPV 8.4, Neut % (Auto) 90.9 H, Lymph % (Auto) 6.9 L, [place] % (Auto) 1.4 L, Eos % (Auto) 0.4, Baso % (Auto) 0.4, Neut # (Auto) 20.5 H, Lymph # (Auto) 1.6, [place] # (Auto) 0.3, Eos # (Auto) 0.1, Baso # (Auto) 0.1, Total Counted 100, Neutrophils % (Manual) 91 H, Lymphocytes % (Manual) 8 L, Monocytes % (Manual) 1 L, Platelet Estimate Normal, RBC Morphology Normal, D-Dimer 1.37 H, Sodium 138, Potassium 4.3, Chloride 103, Carbon Dioxide 22, Anion Gap 17.3 H, BUN 18 H, Creatinine 0.90, Estimated Creat Clear 52, Estimated GFR 60, Est GFR ( Amer) 72, Glucose 205 H, Lactate 4.4 H, Calcium 8.2 L, Magnesium 1.8, Total Bilirubin 1.3, Direct Bilirubin 0.3, Conjugated Bilirubin 0.0, Indirect Bilirubin 1.0 H, Unconjugated Bilirubin 1.0, AST 72 H, ALT 52, Alkaline Phosphatase 93, Troponin I < 0.01, NT-Pro-B Natriuret Pep 591 H, Total Protein 7.5, Albumin 4.2 11/16/23 06:05: VBG pH 7.24 L, VBG pCO2 46.9, VBG pO2 63.3 H, VBG HCO3 19.7 L, VBG Total CO2 21.2 L, VBG O2 Saturation 89.2 H, VBG Base Excess -7.6 L 11/16/23 06:34: SARS-CoV-2 (PCR) Not detected, Influenza A Untype (PCR) Not detected, Influenza Type B (PCR) Not detected 11/16/23 07:10: Specimen Source L brachial, O2 % 60%, ABG pH 7.44, ABG pCO2 25.9 L, ABG pO2 97.6, ABG HCO3 17.0 L, ABG Total CO2 17.8 L, ABG O2 Saturation 98, ABG Base Excess -7.2 L, Vent Rate 18, Tidal Volume 420, PEEP 8 Medical History: Medical History Constipation Diabetes mellitus Difficulty walking Failure to thrive Gastroesophageal reflux disease Hyperlipidemia Incontinence in female Malnutrition Pressure ulcer Renal failure Tobacco use Assessment and Plan Assessment and plan all Dx Assessment and Plan for all problems:: History of Present Illness From ER Note HPI narrative: This patient is an 83-year-old female with a history of type 2 diabetes, hypertension, hyperlipidemia, renal insufficiency, incontinence, failure to thrive, bilateral lower extremity edema, and general debility presenting to the emergency department from senior care for evaluation with concern for respiratory distress. According to report called from the nursing facility, the patient was rounded on this morning was found to be in significant respiratory distress. She had vomited multiple times during the night and they were concerned that she had potentially aspirated. They noted that her oxygen saturation on room air was in the 40s. They stated they were unable to warehouse order picker an oxygen saturation once they put her on oxygen. They called EMS, who noted that when they arrived on scene, the patient was in obvious respiratory distress with a respiratory rate in the 50s. She was hypoxic with oxygen saturation of 80% on 6 L nasal cannula, so they put her on CPAP mask. EMS notes that she was initially able to answer questions, however her mental status declined rapidly upon arrival. Patient is unable to contribute to history given acuity of condition. According to the senior care, the patient is a full code and is typically alert and oriented x 3. Her daughter in [place] is her power of collections attorney. In summary, this patient is a 83-year-old female presenting to the Emergency Department for evaluation of respiratory distress in the setting of vomiting overnight. Differential diagnoses considered include but are not limited to aspiration pneumonia, respiratory failure, flash pulmonary edema, CHF exacerbation, COPD exacerbation, ACS, PE. Ruling out the most morbid conditions drove assessment. PT STARTED ON CEFEPIME 2GM IV Q12 HOURS IN ER. PT STARTED ON VANCOMYCIN 1500MG (20MG/KG) IV Q24 HOURS THIS AM. PHARMACY WILL FOLLOW DAILY AND ADJUST NECESSARY WHILE PT RECEIVING VANCOMYCIN.
--- NOTE | 2023-11-16 09:36 | EXP.PULM.CON ---
History of Present Illness History of present illness: Patient intubated and sedated, much of the history is obtained from chart review. Ms. Nuñez is a 83-year-old female presented to ER with worsening respiratory distress and upon presentation here patient needing intubation mechanical ventilatory support. [facility] Disclaimer: The information contained in this section may have been updated after the patient was seen, as this information can be updated by other users. Medical History Acute respiratory failure with hypoxia Constipation Diabetes mellitus Difficulty walking Failure to thrive Gastroesophageal reflux disease Hyperlipidemia Incontinence in female Malnutrition On mechanically assisted ventilation Pneumonia Pressure ulcer Renal failure Tobacco use Family History (Updated 11/16/23 @ 09:23 by Sandra Bustamante, RN) Other No significant family history Social History (Updated 11/16/23 @ 09:23 by Sandra Bustamante, RN) Smoking Status: Unknown if ever smoked alcohol intake: never current occupational status: retired Travel in the last 8 weeks: None household members: caregiver housing: long-term Review of Systems Review of Systems Review of systems:: unable to obtain Review of systems (narrative): Intubated and sedated Pulmonology Exam Inpatient Vital signs and Labs for Last 24 Hours: Temp Pulse Resp BP Pulse Ox O2 Del Method FiO2 98.2 F 112 H 16 112/87 96 Mechanical Ventilation 80 11/16/23 09:20 11/16/23 09:04 11/16/23 09:04 11/16/23 09:04 11/16/23 07:36 11/16/23 09:04 11/16/23 06:10 Laboratory Results - last 24 hr 11/16/23 06:00: WBC 22.6 H*, RBC 4.64, Hgb 14.2, Hct 42.8, MCV 92.1, MCH 30.7, MCHC 33.3, RDW 13.9, Plt Count 343, MPV 8.4, Neut % (Auto) 90.9 H, Lymph % (Auto) 6.9 L, [place] % (Auto) 1.4 L, Eos % (Auto) 0.4, Baso % (Auto) 0.4, Neut # (Auto) 20.5 H, Lymph # (Auto) 1.6, [place] # (Auto) 0.3, Eos # (Auto) 0.1, Baso # (Auto) 0.1, Total Counted 100, Neutrophils % (Manual) 91 H, Lymphocytes % (Manual) 8 L, Monocytes % (Manual) 1 L, Platelet Estimate Normal, RBC Morphology Normal, D-Dimer 1.37 H, Sodium 138, Potassium 4.3, Chloride 103, Carbon Dioxide 22, Anion Gap 17.3 H, BUN 18 H, Creatinine 0.90, Estimated Creat Clear 52, Estimated GFR 60, Est GFR ( Amer) 72, Glucose 205 H, Lactate 4.4 H, Calcium 8.2 L, Magnesium 1.8, Total Bilirubin 1.3, Direct Bilirubin 0.3, Conjugated Bilirubin 0.0, Indirect Bilirubin 1.0 H, Unconjugated Bilirubin 1.0, AST 72 H, ALT 52, Alkaline Phosphatase 93, Troponin I < 0.01, NT-Pro-B Natriuret Pep 591 H, Total Protein 7.5, Albumin 4.2 11/16/23 06:05: VBG pH 7.24 L, VBG pCO2 46.9, VBG pO2 63.3 H, VBG HCO3 19.7 L, VBG Total CO2 21.2 L, VBG O2 Saturation 89.2 H, VBG Base Excess -7.6 L 11/16/23 06:34: SARS-CoV-2 (PCR) Not detected, Influenza A Untype (PCR) Not detected, Influenza Type B (PCR) Not detected 11/16/23 07:10: Specimen Source L brachial, O2 % 60%, ABG pH 7.44, ABG pCO2 25.9 L, ABG pO2 97.6, ABG HCO3 17.0 L, ABG Total CO2 17.8 L, ABG O2 Saturation 98, ABG Base Excess -7.2 L, Vent Rate 18, Tidal Volume 420, PEEP 8 I & O for Labs for Last 24 Hours: Intake & Output 11/13/23 11/14/23 11/15/23 11/16/23 23:59 23:59 23:59 23:59 Intake Total 0.465 / 0.465 Balance 0.465 / 0.465 Weight 166 lb 3 oz Constitutional: Present severe distress Comment:: Intubated and Sedated Head: Present normocephalic and atraumatic Neck: Present normal inspection and trachea midline Respiratory: Present patient mechanically ventilated, prolonged expiratory phase, rhonchi and wheezes Cardiac: Present S1/S2 and Tachycardia GI: Present soft; Absent distention or tenderness Skin: Present intact; Absent cyanosis Neuro: Absent alert, awake or oriented x 3 Comment:: Intubated and sedated Extremities: Present normal inspection; Absent clubbing or cyanosis Psychiatric: Present unable to assess Meds Home Medications and Allergies Home Medications Medication Instructions Recorded Confirmed Type aspirin 81 mg chewable tablet 81 mg PO DAILY 05/09/22 11/16/23 History dextromethorphan-guaifenesin 10 10 ml PO Q4HP PRN Cough 05/09/22 11/16/23 History mg-100 mg/5 mL oral syrup (Robafen DM Cough-Chest Congestion) furosemide 20 mg tablet (Lasix) 20 mg PO DAILY #90 tabs 05/09/22 11/16/23 Rx omeprazole 40 mg capsule,delayed 40 mg PO DAILY 05/09/22 11/16/23 History release oxybutynin chloride 5 mg tablet 5 mg PO BID 05/09/22 11/16/23 History polyethylene glycol 3350 17 gram 17 g PO DAILYP PRN Constipation 05/09/22 11/16/23 History oral powder packet (Miralax) simvastatin 40 mg tablet 40 mg PO HS 05/09/22 11/16/23 History aluminum hydrox-magnesium carb 95 30 ml PO DAILY 10/27/23 11/16/23 History mg-358 mg/15 mL oral suspension (Gaviscon) lactulose 10 gram/15 mL oral 30 ml PO DAILYP PRN constipation 10/27/23 11/16/23 History solution magnesium oxide 400 mg (241.3 mg 400 mg PO BID 10/27/23 11/16/23 History magnesium) tablet (MagOx) multivitamin 1 tab PO DAILY 10/27/23 11/16/23 History sennosides 8.6 mg-docusate sodium 2 tab-cap PO BID 10/27/23 11/16/23 History 50 mg tablet (Senexon-S) acetaminophen 500 mg tablet 500 mg PO Q4HP PRN Pain 11/16/23 11/16/23 History cholecalciferol (vitamin D3) 10 10 mcg PO DAILY 11/16/23 11/16/23 History mcg (400 unit) tablet tramadol 50 mg tablet 50 mg PO BID 11/16/23 11/16/23 History New Prescriptions to Start Prescriptions: Allergies Allergy/AdvReac Type Severity Reaction Status Date / Time meloxicam [From Mobic] AdvReac Verified 11/16/23 09:11 Penicillins AdvReac Verified 11/16/23 09:11 Results Laboratory Findings 11/16/23 06:00 11/16/23 06:00 ABG ABG pH 7.44 mmol/L (7.35-7.45) 11/16/23 07:10 ABG pCO2 25.9 mmhg (35.0-45.0) L 11/16/23 07:10 ABG pO2 97.6 mmhg (80-100) 11/16/23 07:10 ABG O2 Saturation 98 % (90-100) 11/16/23 07:10 PT/INR, D-dimer D-Dimer 1.37 ug/mL (0.0-0.5) H 11/16/23 06:00 Abnormal lab findings: Abnormal Labs 11/16/23 11/16/23 11/16/23 06:00 06:05 07:10 WBC 22.6 H* Neut % (Auto) 90.9 H Lymph % (Auto) 6.9 L [place] % (Auto) 1.4 L Neut # (Auto) 20.5 H Neutrophils % (Manual) 91 H Lymphocytes % (Manual) 8 L Monocytes % (Manual) 1 L D-Dimer 1.37 H ABG pCO2 25.9 L ABG HCO3 17.0 L ABG Total CO2 17.8 L ABG Base Excess -7.2 L VBG pH 7.24 L VBG pO2 63.3 H VBG HCO3 19.7 L VBG Total CO2 21.2 L VBG O2 Saturation 89.2 H VBG Base Excess -7.6 L Anion Gap 17.3 H BUN 18 H Glucose 205 H Lactate 4.4 H Calcium 8.2 L Indirect Bilirubin 1.0 H AST 72 H NT-Pro-B Natriuret Pep 591 H Assessment and Plan *Assessment and plan (1) On mechanically assisted ventilation: Status: Acute Category: Medical Code(s): Z99.11 - Dependence on respirator [ventilator] status (2) Pneumonia: Status: Acute Category: Medical Code(s): J18.9 - Pneumonia, unspecified organism (3) Acute respiratory failure with hypoxia: Status: Acute Category: Medical Code(s): J96.01 - Acute respiratory failure with hypoxia Plan Patient intubated and sedated, much of the history is obtained from chart review. Ms. Nuñez is a 83-year-old female presented to ER with worsening respiratory distress and upon presentation here patient needing intubation mechanical ventilatory support. Significant leukocytosis upon admission at 22.6, neutrophilic predominant. Low-grade fevers. VBG upon admission did not show any evidence of hypoxic respiratory failure. Subsequent ABG on 60% FiO2 did not show any evidence of hypoxic/hypercarbic respiratory failure. Anion gap lactic acidosis noted. CT upon admission bilateral lower lobe airspace disease along with concerning pericardial effusion. Plan: -Continue sedation with propofol and fentanyl. -Continue mechanical ventilator support, currently on minimal vent settings with a PEEP of 5 FiO2 35% and a rate of 16 and a tidal volume of 400. ABG from this morning reviewed, did not show any evidence of hypoxic/hypercarbic respiratory failure. CTA concerning for bilateral lower lobe airspace disease, continue vancomycin and cefepime pending tracheal aspirate cultures and blood cultures. No evidence of PE -Received 1 L bolus in the ED. Hemodynamically stable. Not on any pressors. Will follow with echocardiogram result. Continue antibiotics pending cultures. Lactate improving. -Abdomen soft nondistended. -BUN/creatinine within normal limits. Renally dose medications. Follow with urine output. - Continue mechanical ventilatory support - Continue AnalgoSedation with Propofol and Fentanyl with CPOT gal less than or euqal to 2 and RASS goal of to 2 (No need for deep sedation) - VAP bundle Recommend elevate head of the bed at 30 to 45 degrees Recommend oral care with chlorhexidne Recommend GI ulcer prophylaxis - Famotidine 20mg IV BID Recommend chemical DVT prophylaxis Total critical care time spent on this patient is 35 minutes managing acute hypoxic respiratory failure needing mechanical ventilation. This time spent include reviewing test results including interpreting chest x-rays, labs and arterial blood gas, optimizing the ventilator settings,formulating plan of care, discussing the plan of care with the team and the nursing staff.
--- NOTE | 2023-11-16 09:41 | CA_ITS ---
APPROVED REPORT EXAM: Comprehensive 2D, Doppler, and color-flow Echocardiogram [employer]orer: 112 Ht: 5 ft 5 in Wt: 166lbs BSA: 1.83 BP: 112/87 mmHg Indications: Shortness of Breath, Pericardial Effusion on CTA, Hyperlipidemia, intubated flat on back, TDE 2D Dimensions LA Volume 27.00 mL LA Volume Index 14.40 mL/m2 (M/F) 16-34 M-Mode Dimensions RVDd 2.83 cm (0.9-2.6) LA Diam 4.72 cm (1.9-4.0) LVDd 3.49 cm (3.5-5.7) LVDs 2.19 cm (3.5-5.7) IVSd 1.77 cm (0.6-1.1) PWd 0.86 cm (0.6-1.1) EF (Teich) 68.30% FS 37.20% EDV (Teich) 50.50 mL TAPSE 1.75 (<1.7) ESV (Teich) 16.00 mL LV Diastology E Decel Time 283 (160-240 msec) E/A Ratio 0.50 MED A' 7.70 cm/s LAT A' 13.30 cm/s Aortic Valve AO Peak GR. 5.00 mmHg Mitral Valve MV E Max Kristofer. 54.0 (40-130 cm/s) MV A Velocity 107.0 (40-130 cm/s) E/A Ratio 0.50 MV PHT 83.0 ms Tricuspid Valve TR P. Velocity 244.00 cm/s RAP Estimate 10.00 mmHg RVSP 33.80 mmHg Left Ventricle The left ventricle is normal size. Left ventricular systolic function is hyperdynamic. There is increased LV wall thickness. No regional wall motion abnormalities are noted. Transmitral Doppler flow pattern suggests impaired LV relaxation. LVEF is 70%. Right Ventricle The right ventricle is mildly dilated. Right ventricle is mildly hypokinetic. There is increased RV wall thickness. Atria The left atrium size is normal. The right atrium size is normal. There is no Doppler evidence of interatrial shunt. Aortic Valve The aortic valve is mildly thickened. There is no aortic valvular stenosis. Trace aortic regurgitation. Mitral Valve The mitral valve leaflets are mildly thickened. No evidence of mitral valve stenosis. Trace mitral regurgitation. Tricuspid Valve The tricuspid valve leaflets are thin and pliable. Mild tricuspid regurgitation. RVSP is 18 mmHg + RA pressure. Pulmonic Valve The pulmonic valve is not well-visualized. Great Vessels The aortic root is normal in size. The ascending aorta is borderline dilated, measuring 3.7 cm in diameter. The IVC is dilated in the setting of mechanical ventilation. Pericardium There is a small sized, anterior pericardial effusion along the RV free wall and towards the apex. The largest pocket measures 0.4 cm in diastole. No clear echo indications of tamponade. Other Information Study Quality: Fair Conclusion Technically difficult study due to mechanical ventilation and inability to position patient. Hyperdynamic LV systolic function (LVEF 70%). Mild RV dilation with mild reduction in RV systolic function. Mild TR. Small sized, anterior pericardial effusion along the RV free wall and towards the apex. The largest pocket measures 0.4 cm in diastole. No clear echo indications of tamponade. Electronically signed by : Betty Virk MD 11/16/2023 22:02:34
[2023-11-16 09:48] LABS: Troponin I 0.09 ng/ml (0.00-0.034)
[2023-11-16] MEDS: SODIUM CHLORIDE 0.9% 10ML VIAL 8 ML IV (10:02)
[2023-11-16] MEDS: FAMOTIDINE 20MG/2ML VIAL 20 MG IV ×2 (10:03→20:04)
[2023-11-16] MEDS: ENOXAPARIN 40MG/0.4ML SYRINGE 40 MG SQ (10:04)
[2023-11-16] MEDS: VANCOMYCIN/WATER FOR INJ (PEG) 1.5 GM/300 ML PIGGYBACK IV (10:07)
--- NOTE | 2023-11-16 10:09 | [facility].PHAINT1 ---
Pharmacy Intervention Comments: Prior to admission med list verified with MAR faxed from [facility].
[2023-11-16 10:16] LABS: Reflex Lactic Add Lactic Reflex
--- NOTE | 2023-11-16 10:30 | PC.WOUNDNOTE ---
wound on left buttock
[2023-11-16 11:04] LABS: Adenovirus,PCR Not Detected (NotDetected); Coronavirus 19, PCR Not Detected (NotDetected); Coronavirus 229E Not Detected (NotDetected); Coronavirus NL63 Not Detected (NotDetected); Coronavirus OC43 Not Detected (NotDetected); Coronovirus HKU1,PCR Not Detected (NotDetected); Human Metapneumovirus Not Detected (NotDetected); Influenza A, PCR Not Detected (NotDetected); Influenza AH1, 2009 Not Detected (NotDetected); Influenza AH1, PCR Not Detected (NotDetected); Influenza AH3,PCR Not Detected (NotDetected); Influenza B, PCR Not Detected (NotDetected); Parainfluenza 1, PCR Not Detected (NotDetected); Parainfluenza 2, PCR Not Detected (NotDetected); Parainfluenza 3, PCR Not Detected (NotDetected); Parainfluenza 4, PCR Not Detected (NotDetected); Respiratory Syncytial Virus Not Detected (NotDetected); Rhinovirus/Enterovirus Not Detected (NotDetected)
[2023-11-16 11:13] LABS: Oxygen 35 %; PEEP 5; Source Right Brachial; Tidal Volume 420; Vent Rate 16
[2023-11-16 11:14] LABS: Microscopic, Urine URINE MICROSCOPIC (MICROSCOPIC)
[2023-11-16 11:15] LABS: ABG Base Excess -2.5 mmol/L (-2.4-2.3); ABG HCO3 21.6 mmhg (22.0-26.0); ABG PCO2 31.8 mmhg (35.0-45.0); ABG PH 7.45 mmol/L (7.35-7.45); ABG PO2 131.6 mmhg (80-100); ABG TCO2 22.5 mmhg (23-27)
[2023-11-16 11:16] LABS: ABG Oxygen Saturation 99 % (90-100)
[2023-11-16 11:18] LABS: Appearance,Urine CLEAR (Clear); Bilirubin,Urine Negative (Negative); Blood, Urine Negative (Negative); Color,Urine YELLOW (Yellow); Glucose,Urine (UA) Negative (Negative); Ketones,Urine 1+ (Negative); Leukocyte Esterase,Urine Negative (Negative); Nitrate,Urine Negative (Negative); PH,Urine 6.5 (5.0-8.5); Protein,Urine 1+ (Negative); Urobilinogen,Urine 0.2 EU/dl (0.2)
[2023-11-16] MEDS: FENTANYL CITRATE/PF 1,000 MCG in 0.9 % SODIUM CHLORIDE 80 ML 2.5 MCG IV (11:22)
[2023-11-16] MEDS: propofoL 100 ML 9.3100000000000005 MG IV (11:32)
[2023-11-16 11:42] LABS: Bacteria,Urine Trace /lpf; Squamous Epithelial Cell,Urine Occasional #/hpf (0-5); WBC,Urine Occasional #/hpf (0-3)
--- NOTE | 2023-11-16 12:05 | PC.WOUNDNOTE ---
Skin assessment upon admission
[2023-11-16 13:27] LABS: Troponin I 0.13 ng/ml (0.00-0.034)
[2023-11-16 13:51] LABS: POC Glucose,Bedside 158 (70-110)
[2023-11-16] MEDS: IPRATROPIUM/ALBUTEROL 3 ML NEB IH ×3 (13:57→23:07)
--- NOTE | 2023-11-16 14:08 | PC.NURSE ---
heels elevated, mittens in place to prevent self extubation and removal of iv lines.
--- NOTE | 2023-11-16 15:00 | DIET.NUTRFU ---
RD spoke to nurse at [place] and patient was tolerating regular thin liquids at [place]. Was independent with meals and wt was stable. Currently patient is intubated, possible aspiration. If unable to extubate will recommend enteral nutrition. Currently has a OG in place. Currently receiving fentanyl, propofol, insulin and ABT tx. History of type 2 diabetes, hypertension, hyperlipidemia, renal insufficiency, incontinence, failure to thrive, bilateral lower extremity edema, and general debility. Nutritional needs are 1700-1800kcal and 75-80gm protein with 2000ml/day. Labs reviewed. Skin breakdown noted to L buttock, appears scabbed over currently. When appropriate start Glucerna at 20ml/hr to reach goal rate of 70ml/hr depending on propofol rate. Goal rate will provide 1680kcal and 70gm protein providing 100% at goal rate. RD will continue to monitor POC
--- NOTE | 2023-11-16 16:09 | PC.NURSE ---
management of pt critical care drips and critical care provided by Zeynep Trinidad RN completed under my supervision. Nelosn DIAZ
--- NOTE | 2023-11-16 18:31 | EXP.SEPSISRE ---
[facility] Tissue Perfusion Eval Sepsis Re-Evaluation Performed: Yes Date Performed: 11/16/23 Time Performed: 09:15
[2023-11-16] MEDS: humaLOG 100 UNITS/ML 3ML VIAL (SSI) SQ (19:01)
[2023-11-16 19:04] LABS: POC Glucose,Bedside 192 (70-110)
[2023-11-17] VITALS (26 sets, daily range): BP systolic 90–131; BP diastolic 49–70; PULSE 75–100; RESP 16–26; TEMP 36.4–37.2; O2SAT 93–100; BMI 29.4
[2023-11-17 00:13] LABS: POC Glucose,Bedside 137 (70-110)
[2023-11-17] MEDS: propofoL 100 ML 4.59999999999999964 MG IV (02:01)
--- NOTE | 2023-11-17 05:37 | PC.NURSE ---
Shift summary: Pt intubated and sedated throughout shift, RASS -1 - 0, CPOT 0-1, intermittently opens eyes spontaneously and follows commands. Currently on propofol gtt 10 mcg/kg/min (4.6 mL/hr) and fentanyl gtt 25 mcg/hr (2.5 mL/hr), tolerating well. Bilateral mittens placed throughout shift, checked for vascular status and placement during RN rounding. Pt's VSS at this time. Intermittent thick sputum suctioned from ETT, pt tolerated well. OG tube and Severino in place. UOP 15-30 mL/hr, [employer] notified overnight, MAP's >65, no other interventions at this time. Pt turned Q2 hrs. Daughter at bedside, all questions answered throughout shift.
--- NOTE | 2023-11-17 06:00 | XR_ITS ---
PROCEDURE INFORMATION: Exam: XR Chest Exam date and time: 11/17/2023 5:21 AM Age: 83 years old Clinical indication: Device placement; Ett placement (vent status); Additional info: Intubated TECHNIQUE: Imaging protocol: Radiologic exam of the chest. Views: 1 view. COMPARISON: CT ANGIO CHEST PE PROTOCOL 11/16/2023 8:34 AM FINDINGS: Tubes, catheters and devices: An endotracheal catheter is noted with its tip 4.8 cm above the casey. An enteric catheter extends to the abdomen with tip overlying the epigastrium. Lungs: Unremarkable. No consolidation. Pleural spaces: Unremarkable. No pleural effusion. No pneumothorax. Heart/Mediastinum: Unremarkable. No cardiomegaly. Bones/joints: The bones are osteopenic. IMPRESSION: Support lines and catheters in place as described.
[2023-11-17] MEDS: IPRATROPIUM/ALBUTEROL 3 ML NEB IH ×4 (06:42→23:14)
[2023-11-17 07:02] LABS: POC Glucose,Bedside 120 (70-110)
--- NOTE | 2023-11-17 07:02 | PC.NURSE ---
Pt sedation currently at fentanyl gtt @ 12.5 mcg/hr (1.3 mL/hr) and propofol 5 mcg/kg/min (2.3 mL/hr) to maintain sedation until SBT. Educated daughter to notify staff anesthetist if pt becomes restless, distressed, or agitated on this level of sedation.
[2023-11-17 07:24] LABS: Basophils % 0.1 % (0.1-2.0); Hematocrit 37.2 % (37.0-47.0); Hemoglobin 12.7 g/dL (12.2-16.2); Lymphocytes # 1.3 K/mm3 (0.7-4.5); Lymphocytes % 5.2 % (10-50); Mean Corpuscular HGB Conc 34.1 g/dL (31.8-35.4); Mean Corpuscular Hemoglobin 30.9 pg (27.0-31.2); Mean Corpuscular Volume 90.7 fl (81-99); Monocytes # 0.9 K/mm3 (0.1-1.0); Monocytes % 3.3 % (1.7-9.3); Neutrophils # 23.5 K/mm3 (1.8-7.8); Neutrophils % 91.5 % (37.0-80.0); Platelet Count 251 K/mm3 (142-424); Red Cell Distribution Width 14.1 % (11.5-17.5); White Blood Count 25.7 K/mm3 (4.8-10.8)
--- NOTE | 2023-11-17 07:30 | P.PN_ITS ---
Subjective *Date: 11/17/23 *Time: 08:07 Interval history: No acute respiratory vents overnight. Pulmonology Exam Inpatient Vital signs and Labs for Last 24 Hours: Temp Pulse Resp BP Pulse Ox O2 Del Method FiO2 97.7 F 88 20 102/57 L 100 Mechanical Ventilation 35 11/17/23 05:00 11/17/23 07:00 11/17/23 07:00 11/17/23 07:00 11/17/23 07:00 11/17/23 07:00 11/17/23 07:00 Laboratory Results - last 24 hr 11/16/23 06:00: D-Dimer 1.37 H 11/16/23 06:30: Urine Color Yellow, Urine Appearance Clear, Urine pH 6.5, Ur Specific [place] 1.020, Urine Protein 1+, Urine Glucose (UA) Negative, Urine Ketones 1+, Urine Blood Negative, Urine Nitrate Negative, Urine Bilirubin Negative, Urine Urobilinogen 0.2, Ur Leukocyte Esterase Negative, Urine RBC None, Urine WBC Occasional, Ur Squamous Epith Cells Occasional, Urine Bacteria Trace 11/16/23 06:34: Chlamy pneumoniae PCR TNP, Adenovirus (PCR) Not detected, B. pertussis DNA (PCR) TNP, Coronavirus OC43 (PCR) Not detected, Coronavirus HKU1 (PCR) Not detected, Coronavirus 229E (PCR) Not detected, SARS-CoV-2 (PCR) Not detected 11/16/23 06:34: SARS-CoV-2 (PCR) Not detected, Coronavirus NL63 (PCR) Not detected, Human Metapneumovir PCR Not detected, Influenza A (H1) PCR Not detected, Influ A (H1N1/09) PCR Not detected, Influenza A (H3) PCR Not detected, Influenza Type A (PCR) Not detected, Influenza A Untype (PCR) Not detected, Influenza Type B (PCR) Not detected 11/16/23 06:34: Influenza Type B (PCR) Not detected, M. pneumoniae (PCR) TNP, Parainfluenza 1 (PCR) Not detected, Parainfluenza 2 (PCR) Not detected, Parainfluenza 3 (PCR) Not detected, Parainfluenza 4 (PCR) Not detected, RSV (PCR) Not detected, Entero/Rhino (PCR) Not detected 11/16/23 09:18: Troponin I 0.09 H 11/16/23 10:58: Lactate 2.0 11/16/23 11:05: Specimen Source Right brachial, O2 % 35, ABG pH 7.45, ABG pCO2 31.8 L, ABG pO2 131.6 H, ABG HCO3 21.6 L, ABG Total CO2 22.5 L, ABG O2 Saturation 99, ABG Base Excess -2.5 L, Ashwin Test N/a, Vent Rate 16, Tidal Volume 420, PEEP 5 11/16/23 12:42: Troponin I 0.13 H 11/16/23 13:44: POC Glucose 158 H 11/16/23 18:58: POC Glucose 192 H 11/17/23 00:03: POC Glucose 137 H 11/17/23 06:55: POC Glucose 120 H I & O for Labs for Last 24 Hours: Intake & Output 11/14/23 11/15/23 11/16/23 11/17/23 23:59 23:59 23:59 23:59 Intake Total 1605.730 / 1612.730 122.820 / 122.820 Output Total 920 / 940 220 / 220 Balance 685.730 / 672.730 -97.180 / -97.180 Weight 166 lb 2.951 oz 176 lb 6.4 oz Constitutional: Present severe distress Comment:: Intubated and Sedated Head: Present normocephalic and atraumatic Neck: Present normal inspection and trachea midline Respiratory: Present patient mechanically ventilated, prolonged expiratory phase, rhonchi and wheezes Cardiac: Present S1/S2 and Tachycardia GI: Present soft; Absent distention or tenderness Skin: Present intact; Absent cyanosis Neuro: Present awake; Absent alert or oriented x 3 Comment:: Intubated and sedated Extremities: Present normal inspection; Absent clubbing or cyanosis Psychiatric: Present unable to assess Assessment and Plan *Assessment and plan (1) On mechanically assisted ventilation: Status: Acute Category: Medical Code(s): Z99.11 - Dependence on respirator [ventilator] status (2) Pneumonia: Status: Acute Qualifiers: Laterality: bilateral Lung location: lower lobe of lung Pneumonia type: due to unspecified organism Qualified Code(s): J18.9 - Pneumonia, unspecified organism Category: Medical Code(s): J18.9 - Pneumonia, unspecified organism (3) Acute respiratory failure with hypoxia: Status: Acute Category: Medical Code(s): J96.01 - Acute respiratory failure with hypoxia Plan Patient intubated and sedated, much of the history is obtained from chart review. Ms. Nuñez is a 83-year-old female presented to ER with worsening respiratory distress and upon presentation here patient needing intubation mechanical ventilatory support. Significant leukocytosis upon admission at 22.6, neutrophilic predominant. Low- grade fevers. VBG upon admission did not show any evidence of hypoxic respiratory failure. Subsequent ABG on 60% FiO2 did not show any evidence of hypoxic/hypercarbic respiratory failure. Anion gap lactic acidosis noted. CT upon admission bilateral lower lobe airspace disease along with concerning pericardial effusion. Interval update: No acute respiratory vents overnight. Minimal ventilator settings, chest x-ray from this morning reviewed, no acute pulmonary infiltrates. Adequate urine output. Renal function stable. Echocardiogram normal EF, small pericardial effusion with no evidence of tamponade. LV hyperdynamic, RV dilated with RV wall thickness. Plan: -Continue sedation with propofol and fentanyl. Wean sedation to perform SBT -Continue mechanical ventilator support, currently on minimal vent settings with a PEEP of 5 FiO2 35% and a rate of 16 and a tidal volume of 400. Chest x-ray this morning reviewed, ET tube in place. No acute pulmonary infil trates. No effusions. SBT and possible extubation CTA concerning for bilateral lower lobe airspace disease, continue vancomycin and cefepime pending tracheal aspirate cultures and blood cultures. No evidence of PE -Received 1 L bolus in the ED on admission. Hemodynamically stable. Not on any pressors. Continue antibiotics pending cultures. Lactate improved. -Abdomen soft nondistended. -BUN/creatinine within normal limits. Renally dose medications. Adequate urine output - Continue mechanical ventilatory support - Continue AnalgoSedation with Propofol and Fentanyl with CPOT gal less than or euqal to 2 and RASS goal of to 2 (No need for deep sedation) - VAP bundle Recommend elevate head of the bed at 30 to 45 degrees Recommend oral care with chlorhexidne Recommend GI ulcer prophylaxis - Famotidine 20mg IV BID Recommend chemical DVT prophylaxis Total critical care time spent on this patient is 35 minutes managing acute hypoxic respiratory failure needing mechanical ventilation. This time spent include reviewing test results including interpreting chest x-rays, labs and arterial blood gas, optimizing the ventilator settings,formulating plan of care, discussing the plan of care with the team and the nursing staff.
[2023-11-17 07:44] LABS: Chloride 105 mmol/L (98-107); Potassium 3.6 mmoL/L (3.5-5.1); Sodium 137 mmol/L (136-145)
[2023-11-17 07:47] LABS: Alanine Aminotransferase 35 U/L (12-78); Albumin Level 3.4 g/dl (3.5-5.0); Albumin/Globulin Ratio 1.2 (1.1-1.8); Alkaline Phosphatase 95 U/L (38-126); Anion Gap 10.6 mEq/L (5-15); Aspartate Amino Transferase 64 U/L (14-36); Bilirubin,Total 0.8 mg/dl (0.2-1.3); Blood Urea Nitrogen 26 mg/dl (7-17); Calcium 8.1 mg/dl (8.4-10.2); Carbon Dioxide 25 mmol/L (22.0-30.0); Creatinine Clearance Estimated 54 mL/min (50-200); Estimated Glomerular Filt Rate 60 ml/min (>60); GFR (African American) 72 ML/MIN (>60); Globulin 2.9 g/dL (1.3-3.2); Glucose 136 mg/dl (74-100); Total Protein,Serum 6.3 g/dl (6.3-8.2)
[2023-11-17 07:48] LABS: Magnesium 2.3 mg/dl (1.6-2.3)
[2023-11-17 07:53] LABS: MANUAL DIFFERENTIAL MANUAL DIFFERENTIAL (MANUAL DIFF)
[2023-11-17 08:50] LABS: ABG Base Excess -3.1 mmol/L (-2.4-2.3); ABG Oxygen Saturation 97 % (90-100); ABG PH 7.45 mmol/L (7.35-7.45); ABG PO2 86.6 mmhg (80-100); ABG TCO2 21.9 mmhg (23-27)
[2023-11-17 08:54] LABS: Lymphocytes % 10 % (10-50); Monocytes % 3 % (2-9); Neutrophils % 87 % (42-76); Total Cells Counted 100
[2023-11-17 08:54] LABS: Oxygen 35% %; PEEP 5; Pressure Support 5; Source R BRACHIAL
[2023-11-17 08:56] LABS: Platelet Estimate Normal; RBC Morphology Normal
--- NOTE | 2023-11-17 09:30 | PC.NURSE ---
Patient extubated and placed on 2LNC. Patient able to follow all commands at present.
[2023-11-17] MEDS: CEFEPIME HCL 2 GM in 0.9 % SODIUM CHLORIDE 100 ML IV ×2 (10:00→20:44)
[2023-11-17] MEDS: ENOXAPARIN 40MG/0.4ML SYRINGE 40 MG SQ (10:00)
[2023-11-17] MEDS: VANCOMYCIN/WATER FOR INJ (PEG) 1.5 GM/300 ML PIGGYBACK IV (10:37)
--- NOTE | 2023-11-17 11:02 | DIET.NUTRFU ---
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 Ordered speech to [facility]. She was on regular diet at [facility].
--- NOTE | 2023-11-17 11:49 | P.PN_ITS ---
Subjective *Date: 11/17/23 *Time: 17:18 Interval history: Tolerating SBT on morning rounds, extubated after rounds. On 2 to 3 L nasal cannula since. Patient is oriented to self, has some mild confusion. Afebrile. No nausea or vomiting. Blood pressure stable but still soft even after weaning sedation. Medical Exam Vital signs and Labs for Last 24 Hours: Vital Signs Temp Pulse Pulse Resp BP BP Pulse Ox 11/17/23 08:00 90 11/17/23 09:35 96 11/17/23 09:42 96 11/17/23 09:00 93 H 25 H 107/63 L 93 L 11/17/23 08:00 89 22 90/49 L 100 11/17/23 09:00 97.7 F 11/17/23 09:00 11/17/23 08:00 11/17/23 07:56 97.6 F 11/17/23 07:00 88 20 102/57 L 100 11/17/23 06:57 11/17/23 06:41 81 11/17/23 06:41 79 11/17/23 06:41 17 100 11/17/23 06:00 78 16 91/49 L 99 11/17/23 04:00 77 11/17/23 05:00 97.7 F 88 18 112/52 L 100 11/17/23 05:00 11/17/23 04:00 97.7 F 76 18 107/62 L 100 11/17/23 04:00 76 18 100 11/17/23 03:00 76 18 92/61 L 100 11/17/23 03:00 11/17/23 00:55 100 11/17/23 02:00 19 100 11/17/23 00:00 75 11/17/23 02:00 78 16 106/59 L 100 11/17/23 01:00 78 18 90/55 L 100 11/17/23 01:00 11/17/23 00:00 98.7 F 78 18 131/70 100 11/17/23 00:00 78 18 100 11/16/23 23:00 76 17 102/62 L 100 11/16/23 23:00 11/16/23 23:07 74 11/16/23 23:07 74 11/16/23 22:44 19 100 11/16/23 22:00 76 17 89/54 L 100 11/16/23 20:00 100 11/16/23 21:00 74 16 102/63 L 100 11/16/23 21:00 11/16/23 20:00 99.6 F 78 16 112/68 100 11/16/23 20:00 78 16 100 11/16/23 20:00 75 11/16/23 20:17 21 100 11/16/23 19:00 78 18 101/60 L 96 11/16/23 18:30 77 18 108/65 L 100 11/16/23 18:47 11/16/23 18:10 73 11/16/23 18:10 72 11/16/23 18:10 21 99 11/16/23 18:00 74 18 94/60 L 97 11/16/23 17:30 75 18 83/56 L 98 11/16/23 17:08 99.0 F 11/16/23 17:00 11/16/23 17:00 82 18 98/68 L 97 11/16/23 16:01 80 11/16/23 16:30 75 16 83/57 L 97 11/16/23 16:05 98 11/16/23 16:02 74 18 87/56 L 97 11/16/23 15:30 75 18 87/57 L 97 11/16/23 15:00 11/16/23 15:00 77 16 87/51 L 96 11/16/23 14:30 78 16 94/54 L 97 11/16/23 14:00 100 11/16/23 13:30 83 16 89/61 L 96 11/16/23 14:00 77 19 105/58 L 97 11/16/23 13:58 81 11/16/23 13:58 81 11/16/23 13:55 17 96 11/16/23 12:00 90 11/16/23 13:00 11/16/23 13:00 82 18 95/65 L 97 11/16/23 12:30 86 18 85/59 L 95 11/16/23 12:15 11/16/23 12:00 87 18 90/60 L 96 11/16/23 12:00 O2 Del Method O2 Flow Rate FiO2 11/17/23 08:00 11/17/23 09:35 Nasal Cannula 2 11/17/23 09:42 11/17/23 09:00 Mechanical Ventilation 11/17/23 08:00 Mechanical Ventilation 11/17/23 09:00 11/17/23 09:00 Mechanical Ventilation 11/17/23 08:00 Mechanical Ventilation 11/17/23 07:56 11/17/23 07:00 Mechanical Ventilation 35 11/17/23 06:57 Mechanical Ventilation 11/17/23 06:41 11/17/23 06:41 11/17/23 06:41 35 11/17/23 06:00 Mechanical Ventilation 35 11/17/23 04:00 11/17/23 05:00 Mechanical Ventilation 35 11/17/23 05:00 Mechanical Ventilation 11/17/23 04:00 Mechanical Ventilation 35 11/17/23 04:00 Mechanical Ventilation 35 11/17/23 03:00 Mechanical Ventilation 35 11/17/23 03:00 Mechanical Ventilation 11/17/23 00:55 35 11/17/23 02:00 35 11/17/23 00:00 11/17/23 02:00 Mechanical Ventilation 35 11/17/23 01:00 Mechanical Ventilation 35 11/17/23 01:00 Mechanical Ventilation 11/17/23 00:00 Mechanical Ventilation 35 11/17/23 00:00 Mechanical Ventilation 35 11/16/23 23:00 Mechanical Ventilation 35 11/16/23 23:00 Mechanical Ventilation 11/16/23 23:07 11/16/23 23:07 11/16/23 22:44 35 11/16/23 22:00 Mechanical Ventilation 35 11/16/23 20:00 35 11/16/23 21:00 Mechanical Ventilation 30 11/16/23 21:00 Mechanical Ventilation 11/16/23 20:00 Mechanical Ventilation 30 11/16/23 20:00 Mechanical Ventilation 35 11/16/23 20:00 11/16/23 20:17 35 11/16/23 19:00 Mechanical Ventilation 11/16/23 18:30 Mechanical Ventilation 11/16/23 18:47 Mechanical Ventilation 11/16/23 18:10 11/16/23 18:10 11/16/23 18:10 35 11/16/23 18:00 Mechanical Ventilation 11/16/23 17:30 Mechanical Ventilation 11/16/23 17:08 11/16/23 17:00 Mechanical Ventilation 11/16/23 17:00 Mechanical Ventilation 11/16/23 16:01 11/16/23 16:30 Mechanical Ventilation 35 11/16/23 16:05 Mechanical Ventilation 11/16/23 16:02 Mechanical Ventilation 11/16/23 15:30 Mechanical Ventilation 11/16/23 15:00 Mechanical Ventilation 11/16/23 15:00 Room Air 11/16/23 14:30 Mechanical Ventilation 11/16/23 14:00 35 11/16/23 13:30 Mechanical Ventilation 35 11/16/23 14:00 Mechanical Ventilation 11/16/23 13:58 11/16/23 13:58 11/16/23 13:55 35 11/16/23 12:00 11/16/23 13:00 Mechanical Ventilation 11/16/23 13:00 Mechanical Ventilation 11/16/23 12:30 Room Air 11/16/23 12:15 Mechanical Ventilation 35 11/16/23 12:00 Mechanical Ventilation 11/16/23 12:00 Mechanical Ventilation Intake and Output 11/16/23 11/17/23 11/17/23 23:59 07:59 15:59 Intake Total 195.742 / 1612.730 127.401 / 127.401 Output Total 275 / 940 220 / 245 25 / 245 Balance -79.258 / 672.730 -92.599 / -117.599 -25 / -117.599 Intake: Intake, Oral Amount 0 / 0 0 / 0 Intake, Total IV Amount 195.742 / 1612.730 127.401 / 127.401 Cefepime HCl 2 gm In 0.9 % 100 / 100 Sodium Chloride 100 ml @ 200 mls/hr IV Q12H [facility] Rx#:[id number] Fentanyl Citrate/Pf 1,000 mcg In 0.9 % Sodium Chloride 80 ml @ 12.5 MCG/HR 1.25 mls/hr IV . Q24H [facility] Rx#:[id number] propofoL 100 ml @ 5 MCG/KG/MIN 39 / 39 2.327 mls/hr IV .Q24H [facility] Rx#: [id number] Output: Output, Urine Amount 165 / 810 Output, Urine Amount (Catheter) 110 / 130 170 / 195 25 / 195 Severino 110 / 130 170 / 195 25 / 195 Output, Gastric Drainage Amount 0 / 0 50 / 50 Oral 0 / 0 50 / 50 Other: Number of Unmeasured Voids 0 0 0 Weight 80.014 kg Patient Weight 11/17/23 23:59 Weight 80.014 kg Laboratory Results - last 24 hr 11/16/23 06:34: Chlamy pneumoniae PCR TNP, Adenovirus (PCR) Not detected, B. pertussis DNA (PCR) TNP, Coronavirus OC43 (PCR) Not detected, Coronavirus HKU1 (PCR) Not detected, Coronavirus 229E (PCR) Not detected, SARS-CoV-2 (PCR) Not detected, Coronavirus NL63 (PCR) Not detected, Human Metapneumovir PCR Not detected, Influenza A (H1) PCR Not detected, Influ A (H1N1/09) PCR Not detected, Influenza A (H3) PCR Not detected, Influenza Type A (PCR) Not detected, Influenza Type B (PCR) Not detected, M. pneumoniae (PCR) TNP, Parainfluenza 1 (PCR) Not detected, Parainfluenza 2 (PCR) Not detected, Parainfluenza 3 (PCR) Not detected, Parainfluenza 4 (PCR) Not detected, RSV (PCR) Not detected, Entero/Rhino (PCR) Not detected 11/16/23 12:42: Troponin I 0.13 H 11/16/23 13:44: POC Glucose 158 H 11/16/23 18:58: POC Glucose 192 H 11/17/23 00:03: POC Glucose 137 H 11/17/23 06:39: WBC 25.7 H*, RBC 4.10 L, Hgb 12.7, Hct 37.2, MCV 90.7, MCH 30.9, MCHC 34.1, RDW 14.1, Plt Count 251 D, MPV 8.0, Neut % (Auto) 91.5 H, Lymph % (Auto) 5.2 L, [place] % (Auto) 3.3, Eos % (Auto) 0.0 L, Baso % (Auto) 0.1, Neut # (Auto) 23.5 H, Lymph # (Auto) 1.3, [place] # (Auto) 0.9, Eos # (Auto) 0.0, Baso # (Auto) 0.0, Total Counted 100, Neutrophils % (Manual) 87 H, Lymphocytes % (Manual) 10, Monocytes % (Manual) 3, Platelet Estimate Normal, RBC Morphology Normal, Sodium 137, Potassium 3.6, Chloride 105, Carbon Dioxide 25, Anion Gap 10.6, BUN 26 H D, Creatinine 0.90, Estimated Creat Clear 54, Estimated GFR 60, Est GFR ( Amer) 72, Glucose 136 H, Calcium 8.1 L, Magnesium 2.3 D, Total Bilirubin 0.8, AST 64 H, ALT 35 D, Alkaline Phosphatase 95, Total Protein 6.3, Albumin 3.4 L D, Globulin 2.9, Albumin/Globulin Ratio 1.2 11/17/23 06:55: POC Glucose 120 H 11/17/23 08:42: Specimen Source R brachial, O2 % 35%, ABG pH 7.45, ABG pCO2 31.0 L, ABG pO2 86.6, ABG HCO3 21.0 L, ABG Total CO2 21.9 L, ABG O2 Saturation 97, ABG Base Excess -3.1 L, PEEP 5 I & O for Labs for Last 24 Hours: Intake & Output 11/14/23 11/15/23 11/16/23 11/17/23 23:59 23:59 23:59 23:59 Intake Total 1605.730 / 1612.730 127.401 / 127.401 Output Total 920 / 940 245 / 245 Balance 685.730 / 672.730 -117.599 / -117.599 Weight 75.38 kg 80.014 kg Constitutional: Present no acute distress, average body habitus, chronically ill appearing and cooperative Head: Present atraumatic ENT: Present normal exam Respiratory: Present rhonchi and normal respiratory effort; Absent wheezes or crackles Cardiac: Present Reg Rate and Rhythm GI: Present soft and normal bowel sounds; Absent distention or tenderness Extremities: Present normal inspection, full ROM and edema (1+ BLE to knees) Skin: Present intact; Absent erythema Neuro: Present Grossly Intact, alert, awake and moves all extremities Assessment and Plan *Assessment and plan (1) Acute hypoxemic respiratory failure: Status: Acute Category: Medical Code(s): J96.01 - Acute respiratory failure with hypoxia (2) Septic shock: Status: Acute Category: Medical Code(s): A41.9 - Sepsis, unspecified organism; R65.21 - Severe sepsis with septic shock (3) Nausea & vomiting: Status: Acute Category: Medical Code(s): R11.2 - Nausea with vomiting, unspecified (4) Aspiration pneumonia: Status: Acute Category: Medical Code(s): J69.0 - Pneumonitis due to inhalation of food and vomit (5) Diabetes mellitus: Status: Chronic Qualifiers: Diabetes mellitus type: type 1 Diabetes mellitus complication status: with other specified complication Qualified Code(s): E10.69 - Type 1 diabetes mellitus with other specified complication Category: Medical Code(s): E11.9 - Type 2 diabetes mellitus without complications (6) Hyperlipidemia: Status: Chronic Qualifiers: Hyperlipidemia type: mixed hyperlipidemia Qualified Code(s): E78.2 - Mixed hyperlipidemia Category: Medical Code(s): E78.5 - Hyperlipidemia, unspecified Plan 83-year-old female who presented in respiratory distress to the ER. Discussed case with ER physician, request admission to ICU for further management of septic shock, respiratory failure, ventilator management. Patient necessitating IV antibiotics and critical care. Medicine agreed to admit. Pulmonology consulted to assist with critical care. Continues to require inpatient management. Problems addressed as follows: Septic shock Aspiration pneumonia Acute hypoxic respiratory failure -Extubated on rounds. Tolerating 2 to 3 L nasal cannula. Discussed case with pulmonology, continue supplemental oxygen for goal saturation greater 90%. Continue empiric antibiotics at this time with vancomycin, cefepime, Flagyl IV -White cell count remains elevated at 25,000. Patient afebrile. Repeat CBC, CMP, magnesium ordered for the morning. -Sputum sample, blood culture pending -DuoNebs every 6 hours scheduled Kidney function normal at 0.9 creatinine and 26 BUN. Electrolytes stable. Myocardial injury -Initial troponin less than 0.01, repeat 0.09. In the setting of initiation of ventilator and septic shock, consistent with supply/demand mismatch. No changes on telemetry at this time concerning for ischemia. Full code Speech evaluation this afternoon to advance diet Discontinue Severino Lovenox 40 mg subcu daily
--- NOTE | 2023-11-17 14:03 | CARE MANAGER ---
Peng Riojas spoke with Yara and I sent update. JOE Frazier
[2023-11-17 15:16] LABS: POC Glucose,Bedside 106 (70-110)
--- NOTE | 2023-11-17 15:53 | HMH.SLDYSPHA ---
Speech & Language Evaluation Speech/Language Dysphagia Evaluation Start: 11/17/23 15:44 Freq: ONCE Status: Active Protocol: Document 11/17/23 15:44 DEBORA (Rec[facility]17/23 15:[id number] Dysphagia Assess/Goals/Plan Assessment Date of Evaluation: 11/17/23 Evaluation Type Initial Certification Assessment/Problems Post-extubation per MD order. Does Patient Qualify for Service No Qualify/Failure Comment Based on clinical observations made during bedside swallow evaluation, pt's swallowing and manipulation/mastication of a bolus appear to be WFL. No further skilled speech therapy services are warranted at this time. Recommendations PHYSICIAN CERTIFICATION: The specified therapy services are required, authorized, and reviewed every 30 days. Diet Recommendations Mechanical Soft Liquid Type Recommendations Normal/Thin SL Swallow Guidelines Alt bite w/sip thru meal, Standard Aspiration Prec.,Eat at slow rate Dysphagia Swallow Precautions/Strategies Sitting Upright (90 deg),No Straw,Small Bites and Sips, Alternate Liquids/Solids Plan Pt/Guardian verbally ack understanding Yes of dx/prognosis/goals G -code Required No Education Instructions provided Discussed results of CSE, diet recommendations, and aspiration precautions with pt and her daughter, nursing, and MD all of which expressed understanding. Pt/Caregiver able to recall information Able to recall/restate Reinforcement needed No Speech & Language HPI History Present Illness Description of Patient Problem MEDIA PLANNER pulled following information from ER documentation dated 11/16/23, patient is an 83-year-old female with a history of type 2 diabetes, hypertension, hyperlipidemia, renal insufficiency, incontinence, failure to thrive, bilateral lower extremity edema, and general debility presenting to the emergency department from half-way for evaluation with concern for respiratory distress. According to report called from the nursing facility, the patient was rounded on this morning was found to be in significant respiratory distress. She had vomited multiple times during the night and they were concerned that she had potentially aspirated. They noted that her oxygen saturation on room air was in the 40s. CXR 11/16: Right basilar pneumonia. Chest CTA 11/16: No pulmonary embolus or dissection. Dense patchy bibasilar infiltrates consistent with pneumonia or aspiration. MD reports during order aspiration after emesis. Pt/Caregiver Concerns Daughter stated she had no concerns for swallowing. Rehab Services Assessed Speech therapy Is this evaluation r/t stroke? No General Information General Current Food Consistancy NPO Dentition Edentulous Oxygen Status Nasal Cannula Patient Orientation Person Ability to Follow Directions Good Communication Ability Mild Impairment Dysphagia:Food Presentation Evaluation Food Type Pureed,Mechanical Soft,Liquid, Pudding Dysphagia Evaluation Summary Pt was seen sitting upright in her bed with her daughter present at the bedside. She was A&O to her name and birthday. She was able to cough/clear throat on command as well as follow simple 1- step directions. She was given the following bolus consistencies x3 to assess for consistency during the CSE: thin liquid (spoonful of water following refusal of cold ice , open/straw sip, two consecutive open cup sips), puree (applesauce), pudding, and mechanical soft (soft baked lemon cookie.) No overt s/sxs of aspiration were noted outside of thin liquid trials with straw in which she had a wet,gurgly voice and productive cough that she was able to independently clear. At this time, it is recommended she be placed on mechanical soft chopped diet 2 ' edentulous state with thin liquids ensuring alternating between small bites and sips. MD, nursing, and pt/family expressed understanding. Stroke Dysphagia Assessment PHYSICIAN CERTIFICATION: I certify the specified therapy services for Belkis Nuñez are required, authorized, and reviewed every 30 days.
--- NOTE | 2023-11-17 17:55 | PC.NURSE ---
40ml of Fentanyl drip wasted with Jose Raul Khanna RN into drug disposal.
--- NOTE | 2023-11-17 17:58 | PC.NURSE ---
40ml of Fentanyl wasted with Fermín DIAZ.
[2023-11-17] MEDS: FAMOTIDINE 20MG/2ML VIAL 20 MG IV (20:44)
[2023-11-18] VITALS (14 sets, daily range): BP systolic 103–121; BP diastolic 56–68; PULSE 73–98; RESP 20–33; TEMP 36.7–37.1; O2SAT 92–100; BMI 28.3
[2023-11-18] MEDS: IPRATROPIUM/ALBUTEROL 3 ML NEB IH ×3 (06:30→18:05)
[2023-11-18 06:46] LABS: MANUAL DIFFERENTIAL MANUAL DIFFERENTIAL (MANUAL DIFF)
[2023-11-18 06:57] LABS: Basophils % 0.1 % (0.1-2.0); Chloride 109 mmol/L (98-107); Lymphocytes # 1.2 K/mm3 (0.7-4.5); Monocytes # 0.5 K/mm3 (0.1-1.0); Monocytes % 3.9 % (1.7-9.3); Red Cell Distribution Width 14.3 % (11.5-17.5); Sodium 138 mmol/L (136-145)
[2023-11-18 07:00] LABS: Blood Urea Nitrogen 26 mg/dl (7-17); Creatinine Clearance Estimated 52 mL/min (50-200); Estimated Glomerular Filt Rate 60 ml/min (>60); GFR (African American) 72 ML/MIN (>60)
[2023-11-18 07:01] LABS: Calcium 7.8 mg/dl (8.4-10.2); Carbon Dioxide 24 mmol/L (22.0-30.0); Glucose 91 mg/dl (74-100)
[2023-11-18 07:07] LABS: Eosinophils % 0.1 % (0.1-12.0); Lymphocytes % 9.7 % (10-50); Mean Corpuscular HGB Conc 33.3 g/dL (31.8-35.4); Mean Platelet Volume 7.9 fl (7.4-10.4); Neutrophils # 10.9 K/mm3 (1.8-7.8); Neutrophils % 86.2 % (37.0-80.0); Platelet Count 219 K/mm3 (142-424); Red Blood Count 3.56 M/mm3 (4.20-5.40); White Blood Count 12.6 K/mm3 (4.8-10.8)
--- NOTE | 2023-11-18 07:17 | P.PN_ITS ---
Subjective *Date: 11/18/23 *Time: 13:00 Interval history: Still fatigued and confused this morning. Oriented to self. Afebrile, hemodynamically stable. No nausea or vomiting. Tolerating p.o. intake. Daughter at bedside Medical Exam Vital signs and Labs for Last 24 Hours: Vital Signs Temp Pulse Pulse Resp BP Pulse Ox O2 Del Method 11/18/23 06:30 80 11/18/23 06:30 84 11/18/23 06:30 92 L Nasal Cannula 11/18/23 04:00 80 11/18/23 04:00 98.8 F 76 22 103/56 L 99 Nasal Cannula 11/18/23 04:00 80 11/18/23 00:00 84 11/18/23 00:00 98 H 20 121/63 96 Nasal Cannula 11/18/23 00:00 95 H 11/17/23 23:15 84 11/17/23 23:15 84 11/17/23 20:00 90 11/17/23 21:00 Nasal Cannula 11/17/23 20:00 98.9 F 89 22 94/56 L 98 Nasal Cannula 11/17/23 20:00 87 11/17/23 18:53 Nasal Cannula 11/17/23 18:01 78 11/17/23 18:01 78 11/17/23 18:01 99 Nasal Cannula 11/17/23 18:00 86 26 H 105/64 L 100 Nasal Cannula 11/17/23 16:00 90 11/17/23 15:44 Nasal Cannula 11/17/23 12:00 95 H 11/17/23 14:10 92 H 11/17/23 14:10 81 11/17/23 12:00 97.9 F 11/17/23 08:00 90 11/17/23 09:35 96 Nasal Cannula 11/17/23 09:42 96 11/17/23 09:00 93 H 25 H 107/63 L 93 L Mechanical Ventilation 11/17/23 08:00 89 22 90/49 L 100 Mechanical Ventilation 11/17/23 09:00 97.7 F 11/17/23 09:00 Mechanical Ventilation 11/17/23 08:00 Mechanical Ventilation 11/17/23 17:00 100 H 26 H 109/56 L 100 Nasal Cannula 11/17/23 17:00 Nasal Cannula 11/17/23 16:00 98.7 F 97 H 26 H 93/59 L 97 Nasal Cannula 11/17/23 15:00 95 H 24 103/58 L 98 Nasal Cannula 11/17/23 14:00 91 H 23 93/52 L 100 Nasal Cannula 11/17/23 13:00 98 H 24 94/53 L 94 L Nasal Cannula 11/17/23 11:00 Nasal Cannula 11/17/23 07:56 97.6 F O2 Flow Rate 11/18/23 06:30 11/18/23 06:30 11/18/23 06:30 1 11/18/23 04:00 11/18/23 04:00 2 11/18/23 04:00 11/18/23 00:00 11/18/23 00:00 2 11/18/23 00:00 11/17/23 23:15 11/17/23 23:15 11/17/23 20:00 11/17/23 21:00 2 11/17/23 20:00 2 11/17/23 20:00 11/17/23 18:53 2 11/17/23 18:01 11/17/23 18:01 11/17/23 18:01 2 11/17/23 18:00 2 11/17/23 16:00 11/17/23 15:44 11/17/23 12:00 11/17/23 14:10 11/17/23 14:10 11/17/23 12:00 11/17/23 08:00 11/17/23 09:35 2 11/17/23 09:42 11/17/23 09:00 11/17/23 08:00 11/17/23 09:00 11/17/23 09:00 11/17/23 08:00 11/17/23 17:00 2 11/17/23 17:00 2 11/17/23 16:00 2 11/17/23 15:00 2 11/17/23 14:00 2 11/17/23 13:00 2 11/17/23 11:00 2 11/17/23 07:56 Intake and Output 11/17/23 11/17/23 11/18/23 15:59 23:59 07:59 Intake Total 410 / 757.401 120 / 757.401 100 / 100 Output Total 825 / 1295 250 / 1295 Balance -415 / -537.599 -130 / -537.599 100 / 100 Intake: Intake, Oral Amount 120 / 120 Intake, Total IV Amount 410 / 469 Cefepime HCl 2 gm In 0.9 % 110 / 110 Sodium Chloride 100 ml @ 200 mls/hr IV Q12H [facility] Rx#:[id number] Vancomycin/Water For Inj (Peg) 300 / 300 1.5 gm In 300 ml @ 150 mls/hr IV Q24H [facility] Rx#:[id number] Infusion Intake 100 / 100 Cefepime HCl 2 gm In 0.9 % 100 / 100 Sodium Chloride 100 ml @ 200 mls/hr IV Q12H [facility] Rx#:[id number] Output: Output, Urine Amount 0 / 0 Output, Urine Amount (Catheter) 825 / 1245 250 / 1245 Severino 825 / 1245 250 / 1245 Other: Number of Unmeasured Voids 0 1 Number of Urine Attends/Diapers 1 Weight 77.201 kg Patient Weight 11/18/23 23:59 Weight 77.201 kg Laboratory Results - last 24 hr 11/17/23 06:39: WBC 25.7 H*, RBC 4.10 L, Hgb 12.7, Hct 37.2, MCV 90.7, MCH 30.9, MCHC 34.1, RDW 14.1, Plt Count 251 D, MPV 8.0, Neut % (Auto) 91.5 H, Lymph % (Auto) 5.2 L, [place] % (Auto) 3.3, Eos % (Auto) 0.0 L, Baso % (Auto) 0.1, Neut # (Auto) 23.5 H, Lymph # (Auto) 1.3, [place] # (Auto) 0.9, Eos # (Auto) 0.0, Baso # (Auto) 0.0, Total Counted 100, Neutrophils % (Manual) 87 H, Lymphocytes % (Manual) 10, Monocytes % (Manual) 3, Platelet Estimate Normal, RBC Morphology Normal, Sodium 137, Potassium 3.6, Chloride 105, Carbon Dioxide 25, Anion Gap 10.6, BUN 26 H D, Creatinine 0.90, Estimated Creat Clear 54, Estimated GFR 60, Est GFR ( Amer) 72, Glucose 136 H, Calcium 8.1 L, Magnesium 2.3 D, Total Bilirubin 0.8, AST 64 H, ALT 35 D, Alkaline Phosphatase 95, Total Protein 6.3, Albumin 3.4 L D, Globulin 2.9, Albumin/Globulin Ratio 1.2 11/17/23 08:42: Specimen Source R brachial, O2 % 35%, ABG pH 7.45, ABG pCO2 31.0 L, ABG pO2 86.6, ABG HCO3 21.0 L, ABG Total CO2 21.9 L, ABG O2 Saturation 97, ABG Base Excess -3.1 L, PEEP 5 11/17/23 15:09: POC Glucose 106 11/18/23 06:26: Sodium 138, Potassium 3.0 L, Chloride 109 H, Carbon Dioxide 24, Anion Gap 8.0, BUN 26 H, Creatinine 0.90, Estimated Creat Clear 52, Estimated GFR 60, Est GFR ( Amer) 72, Glucose 91 D, Calcium 7.8 L I & O for Labs for Last 24 Hours: Intake & Output 11/15/23 11/16/23 11/17/23 11/18/23 23:59 23:59 23:59 23:59 Intake Total 1605.730 / 1612.730 657.401 / 757.401 100 / 100 Output Total 920 / 940 1295 / 1295 Balance 685.730 / 672.730 -637.599 / -537.599 100 / 100 Weight 75.38 kg 80.014 kg 77.201 kg Constitutional: Present no acute distress, average body habitus, chronically ill appearing and cooperative Head: Present atraumatic ENT: Present normal exam Respiratory: Present rhonchi (Interval improvement) and normal respiratory effort; Absent wheezes or crackles Cardiac: Present Reg Rate and Rhythm GI: Present soft and normal bowel sounds; Absent distention or tenderness Extremities: Present normal inspection, full ROM and edema (1+ BLE to knees) Skin: Present intact; Absent erythema Neuro: Present Grossly Intact, alert, awake and moves all extremities Assessment and Plan *Assessment and plan (1) Acute hypoxemic respiratory failure: Status: Acute Category: Medical Code(s): J96.01 - Acute respiratory failure with hypoxia (2) Septic shock: Status: Acute Category: Medical Code(s): A41.9 - Sepsis, unspecified organism; R65.21 - Severe sepsis with septic shock (3) Nausea & vomiting: Status: Acute Category: Medical Code(s): R11.2 - Nausea with vomiting, unspecified (4) Aspiration pneumonia: Status: Acute Category: Medical Code(s): J69.0 - Pneumonitis due to inhalation of food and vomit (5) Diabetes mellitus: Status: Chronic Qualifiers: Diabetes mellitus type: type 1 Diabetes mellitus complication status: with other specified complication Qualified Code(s): E10.69 - Type 1 diabetes mellitus with other specified complication Category: Medical Code(s): E11.9 - Type 2 diabetes mellitus without complications (6) Hyperlipidemia: Status: Chronic Qualifiers: Hyperlipidemia type: mixed hyperlipidemia Qualified Code(s): E78.2 - Mixed hyperlipidemia Category: Medical Code(s): E78.5 - Hyperlipidemia, unspecified Plan 83-year-old female who presented in respiratory distress to the ER. Discussed case with ER physician, request admission to ICU for further management of septic shock, respiratory failure, ventilator management. Patient necessitating IV antibiotics and critical care. Medicine agreed to admit. Pulmonology consulted to assist with critical care. Continues to require inpatient management. Anticipate discharge in the next 1 to 2 days. Showing improvement and response to therapy. Problems addressed as follows: Septic shock, resolved Aspiration pneumonia Acute hypoxic respiratory failure, improving -Continue to wean oxygen, goal saturation greater 90%. On 1 L on morning rounds, weaned thereafter. Continues to require intermittent 1 L. - Continue empiric antibiotics at this time with vancomycin, cefepime, Flagyl IV -White cell count improved to 12.6 today. Patient remains afebrile. Repeat CBC, CMP, magnesium ordered for the morning. -Sputum sample, blood culture pending -DuoNebs every 6 hours scheduled Kidney function normal at 0.9 creatinine and 26 BUN. Electrolytes stable. Myocardial injury -Initial troponin less than 0.01, repeat 0.09. In the setting of initiation of ventilator and septic shock, consistent with supply/demand mismatch. No changes on telemetry at this time concerning for ischemia. Full code Modified diet Lovenox 40 mg subcu daily
[2023-11-18 08:30] LABS: Lymphocytes % 14 % (10-50); Monocytes % 3 % (2-9); Neutrophils % 83 % (42-76); Platelet Estimate Normal; RBC Morphology Normal; Total Cells Counted 100
[2023-11-18] MEDS: ENOXAPARIN 40MG/0.4ML SYRINGE 40 MG SQ (09:27)
[2023-11-18] MEDS: KCl 10mEq/100ml 100 ML 100 MEQ IV (09:27)
[2023-11-18] MEDS: CEFEPIME HCL 2 GM in 0.9 % SODIUM CHLORIDE 100 ML IV ×2 (09:27→20:36)
[2023-11-18] MEDS: POTASSIUM CHLORIDE 20MEQ TAB 20 MEQ PO ×2 (09:28→20:35)
[2023-11-18] MEDS: VANCOMYCIN/WATER FOR INJ (PEG) 1.5 GM/300 ML PIGGYBACK IV (10:09)
[2023-11-18] MEDS: POTASSIUM CHLORIDE 10 MEQ, LIDOCAINE HCL/PF 3 ML in 0.9 % SODIUM CHLORIDE 100 ML 108 MEQ IV ×3 (10:09→12:11)
[2023-11-18 10:18] LABS: Hemoglobin 10.7 g/dL (12.2-16.2)
[2023-11-18] MEDS: ACETAMINOPHEN 325MG TAB 650 MG PO (10:40)
[2023-11-18 13:51] LABS: MRSA DNA PCR NEGATIVE
[2023-11-18] MEDS: FAMOTIDINE 20MG/2ML VIAL 20 MG IV (20:35)
[2023-11-19] VITALS (10 sets, daily range): BP systolic 94–125; BP diastolic 53–75; PULSE 60–80; RESP 20–30; TEMP 36–36.8; O2SAT 95–100; BMI 29.0
--- NOTE | 2023-11-19 00:04 | PC.NURSE ---
PT WHEEZING AND RR IS 30, NOTIFIED RT AND REQUEST FOR NEB. @0000
--- NOTE | 2023-11-19 00:20 | PC.NURSE ---
low BP reported, BP checked manual 98/60
[2023-11-19] MEDS: IPRATROPIUM/ALBUTEROL 3 ML NEB IH ×3 (00:28→12:25)
--- NOTE | 2023-11-19 05:52 | PC.NURSE ---
PT IS ALERT TO SELF AND LOCATION. PT HAS MOMENTS OF CONFUSION AND IS SLOW TO RESPOND AND UNDERSTAND CONVERSATION AT TIMES. PT IS TOLERATING RA THIS SHIFT AND IS RESTING WELL. PT HAS BEEN TURNED AND REPOSITIONED Q2. PT HAS DENIED PAIN THUS FAR. DAUGHTER IS AT BEDSIDE. BOTH DAUGHTER AND PT DENY NEEDS AT THIS TIME
[2023-11-19 06:53] LABS: Basophils % 0.3 % (0.1-2.0); Eosinophils % 0.3 % (0.1-12.0); Hematocrit 31.5 % (37.0-47.0); Hemoglobin 10.5 g/dL (12.2-16.2); Lymphocytes # 1.4 K/mm3 (0.7-4.5); Lymphocytes % 14.3 % (10-50); Mean Corpuscular HGB Conc 33.4 g/dL (31.8-35.4); Mean Corpuscular Hemoglobin 30.5 pg (27.0-31.2); Mean Corpuscular Volume 91.5 fl (81-99); Mean Platelet Volume 8.2 fl (7.4-10.4); Monocytes # 0.4 K/mm3 (0.1-1.0); Monocytes % 4.2 % (1.7-9.3); Neutrophils # 8.2 K/mm3 (1.8-7.8); Neutrophils % 80.9 % (37.0-80.0); Platelet Count 189 K/mm3 (142-424); Red Blood Count 3.44 M/mm3 (4.20-5.40); Red Cell Distribution Width 14.1 % (11.5-17.5); White Blood Count 10.1 K/mm3 (4.8-10.8)
[2023-11-19 06:56] LABS: Chloride 113 mmol/L (98-107)
[2023-11-19 06:57] LABS: Potassium 4.2 mmoL/L (3.5-5.1); Sodium 140 mmol/L (136-145)
[2023-11-19 06:59] LABS: Alanine Aminotransferase 30 U/L (12-78); Alkaline Phosphatase 64 U/L (38-126); Anion Gap 10.2 mEq/L (5-15); Aspartate Amino Transferase 45 U/L (14-36); Blood Urea Nitrogen 20 mg/dl (7-17); Carbon Dioxide 21 mmol/L (22.0-30.0); Creatinine Clearance Estimated 53 mL/min (50-200); Estimated Glomerular Filt Rate 69 ml/min (>60); GFR (African American) 83 ML/MIN (>60)
[2023-11-19 07:00] LABS: Albumin/Globulin Ratio 1.1 (1.1-1.8); Calcium 8.1 mg/dl (8.4-10.2); Globulin 2.8 g/dL (1.3-3.2); Glucose 92 mg/dl (74-100); Magnesium 2.2 mg/dl (1.6-2.3); Total Protein,Serum 5.8 g/dl (6.3-8.2)
--- NOTE | 2023-11-19 08:00 | P.DS_ITS ---
General Admission date:: 11/16/23 Discharge date: 11/19/23 HPI HPI HPI: Ms. Nuñez is an 83-year-old female who is a resident at [facility]. Presented to the ER via EMS with concern for aspiration and respiratory failure. Was in acute respiratory distress on arrival. History obtained through chart review and discussion with the ER physician. Patient intubated by the time of my interview and interaction with patient. Per ER, patient has a history of type 2 diabetes, hypertension, hyperlipidemia, renal insufficiency, incontinence, failure to thrive, bilateral lower extremity edema, and general debility presenting to the emergency department from skilled nursing for evaluation with concern for respiratory distress. According to report called from the nursing facility, the patient was rounded on this morning was found to be in significant respiratory distress. She had vomited multiple times during the night and they were concerned that she had potentially aspirated. They noted that her oxygen saturation on room air was in the 40s. 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 They called EMS, who noted that when they arrived on scene, the patient was in obvious respiratory distress with a respiratory rate in the 50s. She was hypoxic with oxygen saturation of 80% on 6 L nasal cannula, so they put her on CPAP mask. EMS notes that she was initially able to answer questions, however her mental status declined rapidly upon arrival. Patient is unable to contribute to history given acuity of condition. According to the skilled nursing, the patient is a full code and is typically alert and oriented x 3. 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 Patient animated in the ER. Chest imaging with x-ray concerning for right lower lobe pneumonia. CT obtained given elevated D-dimer showing right lower lobe airspace disease. No eboine obstruction of bronchi. Hospital Course Hospital Course Hospital Course: 83-year-old female who presented in respiratory distress to the ER. Discussed case with ER physician, request admission to ICU for further management of septic shock, respiratory failure, ventilator management. Patient necessitating IV antibiotics and critical care. Medicine agreed to admit. Pulmonology consulted to assist with critical care. Patient has done well and weaned oxygen to room air. On room air by day of discharge. Stable for discharge back to skilled nursing to continue antibiotic treatment orally. Problems addressed during hospitalization as follows: Septic shock, resolved Aspiration pneumonia Acute hypoxic respiratory failure, improving -Patient admitted with respiratory failure. Intubated in the ER. Ebonie food and mucus suctioned from airway. Did well over the first 24 hours with ability to wean off ventilator and extubate by the following morning after admission. Chest imaging positive for pneumonia. Was initiated on broad-spectrum antibiotics. Has done well with normalization in her white cell count. White cells 10 on day of discharge. Patient afebrile and weaned to room air. Will complete 7-day course of antibiotics with p.o. Levaquin. Blood culture and sputum cultures negative at time of discharge. Continue DuoNebs as needed every 6 hours. Follow-up with pulmonology in 1 to 2 weeks for reevaluation. Patient tolerating p.o. intake. Was evaluated by speech after extubation. Slight modifications made to diet: -- Recommendations from speech are that she be placed on a mechanical soft chopped diet (secondary to edentulous state) with thin liquids. Ensure alternating between small bites and sips. Recommend avoiding straws given increased risk for aspiration on eval. Kidney function normal during admission. Creatinine 0.8, BUN 20. Would benefit from repeat CBC, CMP, magnesium within 1 week. Myocardial injury -Initial troponin less than 0.01, repeat 0.09. In the setting of initiation of ventilator and septic shock, consistent with supply/demand mismatch. No changes on telemetry concerning for ischemia. Continue home's with aspirin, statin, Lasix daily. Stable for discharge back to nursing facility to complete Levaquin. Exam Data for Last 24 hours Vital signs and Labs for Last 24 Hours: Temp Pulse Resp BP Pulse Ox O2 Del Method O2 Flow Rate 98.2 F 61 22 125/75 99 Room Air 1 11/19/23 04:00 11/19/23 06:08 11/19/23 04:00 11/19/23 04:00 11/19/23 06:08 11/19/23 06:31 11/18/23 11:25 FiO2 35 11/17/23 07:00 Laboratory Results - last 24 hr 11/16/23 10:25: MRSA (PCR) Negative 11/18/23 06:26: Hgb 10.7 L D, Total Counted 100, Neutrophils % (Manual) 83 H, Lymphocytes % (Manual) 14, Monocytes % (Manual) 3, Platelet Estimate Normal, RBC Morphology Normal 11/19/23 06:25: WBC 10.1, RBC 3.44 L, Hgb 10.5 L, Hct 31.5 L, MCV 91.5, MCH 30.5, MCHC 33.4, RDW 14.1, Plt Count 189, MPV 8.2, Neut % (Auto) 80.9 H, Lymph % (Auto) 14.3, [place] % (Auto) 4.2, Eos % (Auto) 0.3, Baso % (Auto) 0.3, Neut # (Auto) 8.2 H, Lymph # (Auto) 1.4, [place] # (Auto) 0.4, Eos # (Auto) 0.0, Baso # (Auto) 0.0, Sodium 140, Potassium 4.2 D, Chloride 113 H, Carbon Dioxide 21 L, Anion Gap 10.2, BUN 20 H, Creatinine 0.80, Estimated Creat Clear 53, Estimated GFR 69, Est GFR ( Amer) 83, Glucose 92, Calcium 8.1 L, Magnesium 2.2, Total Bilirubin 1.0, AST 45 H D, ALT 30, Alkaline Phosphatase 64, Total Protein 5.8 L, Albumin 3.0 L, Globulin 2.8, Albumin/Globulin Ratio 1.1 I & O for Last 24 hours: Intake & Output 11/16/23 11/17/23 11/18/23 11/19/23 23:59 23:59 23:59 23:59 Intake Total 1605.730 / 1612.730 657.401 / 757.401 870 / 870 60 / 60 Output Total 920 / 940 1295 / 1295 100 / 100 0 / 0 Balance 685.730 / 672.730 -637.599 / -537.599 770 / 770 60 / 60 Weight 75.38 kg 80.014 kg 77.201 kg 78.925 kg Microbiology Reports for the Last 24 Hours: Microbiology 11/16/23 06:12 Sputum - Endotracheal Tube Aspirate Gram Stain - Final 11/16/23 06:12 Sputum - Endotracheal Tube Aspirate Sputum Culture - Preliminary Constitutional Constitutional: no acute distress, average body habitus and chronically ill appearing *Routine HEENT Exam Head: Present normocephalic Eye: Present EOMI and PERRL ENT: Present mucous membranes moist *Routine Neck Exam Neck: Present supple; Absent lymphadenopathy *Routine Respiratory Exam Respiratory: Present normal respiratory effort; Absent rhonchi, wheezes or crackles *Routine Cardiovascular Exam Cardiovascular: Present RRR *Routine Abdominal Exam Abdominal: Present soft and normoactive bowel sounds; Absent tenderness *Routine Extremities Exam Extremities: Absent cyanosis, clubbing or edema *Routine Skin Exam Skin: Present warm; Absent rash *Routine Neurological Exam Neurological: Present alert and moving all extremities; Absent altered mental status Results Data Completed and Pending Labs on day of discharge: Labs from last 24 hours 11/19/23 11/18/23 11/16/23 06:25 06:26 10:25 WBC 10.1 RBC 3.44 L Hgb 10.5 L 10.7 L D Hct 31.5 L MCV 91.5 MCH 30.5 MCHC 33.4 RDW 14.1 Plt Count 189 MPV 8.2 Neut % (Auto) 80.9 H Lymph % (Auto) 14.3 [place] % (Auto) 4.2 Eos % (Auto) 0.3 Baso % (Auto) 0.3 Neut # (Auto) 8.2 H Lymph # (Auto) 1.4 [place] # (Auto) 0.4 Eos # (Auto) 0.0 Baso # (Auto) 0.0 Total Counted 100 Neutrophils % (Manual) 83 H Lymphocytes % (Manual) 14 Monocytes % (Manual) 3 Platelet Estimate Normal RBC Morphology Normal Sodium 140 Potassium 4.2 D Chloride 113 H Carbon Dioxide 21 L Anion Gap 10.2 BUN 20 H Creatinine 0.80 Estimated Creat Clear 53 Estimated GFR 69 Est GFR ( Amer) 83 Glucose 92 Calcium 8.1 L Magnesium 2.2 Total Bilirubin 1.0 AST 45 H D ALT 30 Alkaline Phosphatase 64 Total Protein 5.8 L Albumin 3.0 L Globulin 2.8 Albumin/Globulin Ratio 1.1 MRSA (PCR) Negative Preliminary micro results at discharge 11/16/23 06:12 Sputum Culture - Preliminary Sputum - Endotracheal Tube Aspirate DS: Diagnosis Discharge Diagnosis (1) Acute hypoxemic respiratory failure: Status: Acute Code(s): J96.01 - Acute respiratory failure with hypoxia (2) Septic shock: Status: Acute Code(s): A41.9 - Sepsis, unspecified organism; R65.21 - Severe sepsis with septic shock (3) Nausea & vomiting: Status: Acute Code(s): R11.2 - Nausea with vomiting, unspecified (4) Aspiration pneumonia: Status: Acute Code(s): J69.0 - Pneumonitis due to inhalation of food and vomit (5) Diabetes mellitus: Status: Chronic Code(s): E11.9 - Type 2 diabetes mellitus without complications Qualifiers: Diabetes mellitus complication status: with other specified complication Diabetes mellitus type: type 1 Qualified Code(s): E10.69 - Type 1 diabetes mellitus with other specified complication (6) Hyperlipidemia: Status: Chronic Code(s): E78.5 - Hyperlipidemia, unspecified Qualifiers: Hyperlipidemia type: mixed hyperlipidemia Qualified Code(s): E78.2 - Mixed hyperlipidemia Meds Home Medications and Allergies Home Medications Medication Instructions Recorded Confirmed Type aspirin 81 mg chewable tablet 81 mg PO DAILY 05/09/22 11/16/23 History dextromethorphan-guaifenesin 10 10 ml PO Q4HP PRN Cough 05/09/22 11/16/23 History mg-100 mg/5 mL oral syrup (Robafen DM Cough-Chest Congestion) furosemide 20 mg tablet (Lasix) 20 mg PO DAILY #90 tabs 05/09/22 11/16/23 Rx omeprazole 40 mg capsule,delayed 40 mg PO DAILY 05/09/22 11/16/23 History release oxybutynin chloride 5 mg tablet 5 mg PO BID 05/09/22 11/16/23 History polyethylene glycol 3350 17 gram 17 g PO DAILYP PRN Constipation 05/09/22 11/16/23 History oral powder packet (Miralax) simvastatin 40 mg tablet 40 mg PO HS 05/09/22 11/16/23 History aluminum hydrox-magnesium carb 95 30 ml PO DAILY 10/27/23 11/16/23 History mg-358 mg/15 mL oral suspension (Gaviscon) lactulose 10 gram/15 mL oral 30 ml PO DAILYP PRN constipation 10/27/23 11/16/23 History solution magnesium oxide 400 mg (241.3 mg 400 mg PO BID 10/27/23 11/16/23 History magnesium) tablet (MagOx) multivitamin 1 tab PO DAILY 10/27/23 11/16/23 History sennosides 8.6 mg-docusate sodium 2 tab-cap PO BID 10/27/23 11/16/23 History 50 mg tablet (Senexon-S) acetaminophen 500 mg tablet 500 mg PO Q4HP PRN Pain 11/16/23 11/16/23 History cholecalciferol (vitamin D3) 10 10 mcg PO DAILY 11/16/23 11/16/23 History mcg (400 unit) tablet tramadol 50 mg tablet 50 mg PO BID 11/16/23 11/16/23 History ipratropium 0.5 mg-albuterol 3 mg 3 ml inhalation Q6HP PRN #0 mL 11/19/23 Rx (2.5 mg base)/3 mL nebulization soln levofloxacin 750 mg tablet 750 mg PO Q24H 3 days #3 tabs 11/19/23 Rx New Prescriptions to Start Prescriptions: levofloxacin Clem Dawson Allergies Allergy/AdvReac Type Severity Reaction Status Date / Time meloxicam [From Mobic] AdvReac Verified 11/16/23 09:11 Penicillins AdvReac Verified 11/16/23 09:11 Discharge Plan Disposition Patient Disposition: er Intermediate Care Fac Condition: Fair Discharge Order Discharge Orders: Discharge Order (Routine); Ordered 11/19/23 Ordered By: Clem Dawson Follow up Plan Follow up with: Shweta Montana MD [Physician] - Enter time for follow up (1-2 weeks, will need to call Monday11/21/23 to schedule appt.) Prescriptions/Medication Reconciliation: New ipratropium-albuterol 0.5 mg-3 mg(2.5 mg base)/3 mL Solution For Nebulization 3 ml inhalation Q6HP PRNQty: 0 0RF levofloxacin 750 mg tablet 750 mg PO Q24H 3 Days Qty: 3 0RF Rx Instructions: first dose 11/20/23 Continued polyethylene glycol 3350 [Miralax] 17 gram powder in packet 17 g PO DAILYP PRN (Reason: Constipation) dextromethorphan-guaifenesin [Robafen DM Cough-Chest Congest] 10-100 mg/5 mL syrup 10 ml PO Q4HP PRN (Reason: Cough) aspirin 81 mg tablet,chewable 81 mg PO DAILY omeprazole 40 mg capsule,delayed release(DR/EC) 40 mg PO DAILY oxybutynin chloride 5 mg tablet 5 mg PO BID simvastatin 40 mg tablet 40 mg PO HS furosemide [Lasix] 20 mg tablet 20 mg PO DAILY Qty: 90 3RF Gaviscon 95-358 mg/15 mL suspension 30 ml PO DAILY lactulose 10 gram/15 mL solution 30 ml PO DAILYP PRN (Reason: constipation) magnesium oxide [MagOx] 400 mg (241.3 mg magnesium) tablet 400 mg PO BID multivitamin Tablet 1 tab PO DAILY sennosides-docusate sodium [Senexon-S] 8.6-50 mg tablet 2 tab-cap PO BID acetaminophen 500 mg Tablet 500 mg PO Q4HP PRN (Reason: Pain) cholecalciferol (vitamin D3) 10 mcg (400 unit) Tablet 10 mcg PO DAILY tramadol 50 mg tablet 50 mg PO BID Problem Reconciliation Problems Reviewed?: Yes Patient Discharge Instructions ACTIVITY: Continue current activity DIET: continue same diet Patient Instructions: Intubation and Mechanical Ventilation, Septic Shock, DI for Aspiration Pneumonia, DI for Sepsis -- Adult, Ventilator-Associated Pneumonia, DI for Respiratory Failure, Catheter-associated Urinary Tract Infecti on Providers Primary Care Provider: Provider,Referral Admit Provider: Clem Dawson Attending Provider: Clem Dawson
[2023-11-19] MEDS: CEFEPIME HCL 2 GM in 0.9 % SODIUM CHLORIDE 100 ML IV (09:15)
[2023-11-19] MEDS: POTASSIUM CHLORIDE 20MEQ TAB 20 MEQ PO (09:15)
[2023-11-19] MEDS: ENOXAPARIN 40MG/0.4ML SYRINGE 40 MG SQ (09:15)
[2023-11-19] MEDS: LEVOFLOXACIN/D5W 750 MG/150 ML 750 MG/150 ML PIGGYBACK 100 MG IV (09:54)
[2023-11-19 10:30] LABS: Vancomycin,Trough < 5.0 ug/mL (5.0-10.0)
--- NOTE | 2023-11-20 19:04 | PC.NURSE ---
BLOOD CULTURE RESULT RECEIVED, SPOKE WITH DR NIX, INSTRUCTED TO CONTACT DR MOYA. PT WAS RECENTLY ADMITTED AND DISCHARGED ON [place]. DR MOYA SUGGESTS CULTURE IS CONTAMINATED. NO ACTION NEEDED
== END 2023-11-19 14:44 | DRG 871 ==
LOC: ER 07:20 → 2ND 07:41
PROVIDERS: Internal Medicine Pulmonary Disease; Admitting Provider Internal Medicine Adolescent Medicine; Emergency Provider Emergency Medicine; Visit Provider Internal Medicine Adolescent Medicine
DX: J69.0 Pneumonitis due to inhalation of food and vomit; A41.9 Sepsis, unspecified organism; J96.01 Acute respiratory failure with hypoxia; R65.21 Severe sepsis with septic shock; I5A Non-ischemic myocardial injury (non-traumatic); I24.89 Other forms of acute ischemic heart disease; Z79.899 Other long term (current) drug therapy; I10 Essential (primary) hypertension; E78.2 Mixed hyperlipidemia; E11.9 Type 2 diabetes mellitus without complications
CPT/HCPCS: 31500; 94002; 36415; 51702; 71045; 71275; 80048; 80053; 80076; 80202; 81001; 82803; 82962; 83605; 83735; 83880; 84484; 85007; 85014; 85018; 85025; 85048; 85049; 85378; 87040; 87070; 87086; 87205; 87632; 87635; 87636; 87641; 92610; 93005; 93306; 94003; 94640; 94760; 94761; 99291; J0131; J0330; J1956; J2704; Q9967

== ENCOUNTER 2023-12-07 20:14 | Outpatient (CLI) | payer MEDICARE, MEDICAID, SELFPAY ==
[2023-12-07 20:32] LABS: Microscopic, Urine URINE MICROSCOPIC (MICROSCOPIC)
[2023-12-07 20:47] LABS: Appearance,Urine CLEAR (Clear); Bilirubin,Urine Negative (Negative); Blood, Urine Negative (Negative); Color,Urine YELLOW (Yellow); Glucose,Urine (UA) Negative (Negative); Ketones,Urine Negative (Negative); Leukocyte Esterase,Urine 1+ (Negative); Nitrate,Urine Negative (Negative); PH,Urine 7.5 (5.0-8.5); Protein,Urine Negative (Negative); Specific Gravity, Urine 1.015 (1.005-1.030); Urobilinogen,Urine 0.2 EU/dl (0.2)
[2023-12-07 21:16] LABS: Bacteria,Urine 1+ /lpf; Squamous Epithelial Cell,Urine Occasional #/hpf (0-5)
== END 2023-12-07 23:59 ==
LOC: LAB.DROPOF 20:18
PROVIDERS: PCP Internal Medicine; Visit Provider Internal Medicine
DX: N39.0 Urinary tract infection, site not specified (principal)
CPT/HCPCS: 81001; 87086

== ENCOUNTER 2024-02-14 10:05 | Outpatient (CLI) | payer MEDICARE, MEDICAID, SELFPAY ==
--- NOTE | 2024-02-14 11:04 | XR_ITS ---
FINAL REPORT TECHNIQUE: Chest PA & Lateral CLINICAL HISTORY: SOB COMPARISON: 11/17/2023 FINDINGS: 2 views of the chest were performed. Mild cardiomegaly is present. The lungs are underinflated. The mediastinum is within normal limits. There is no acute cardiopulmonary process. There are no pleural effusions. There is no pneumothorax. The bony thorax appears intact. IMPRESSION: No acute cardiopulmonary process. Mild cardiomegaly. Reviewed, Interpreted and Dictated by Javier Sandoval MD Transcribed by Alia Nevarez Authenticated and [facility]
[2024-02-14] MEDS: ALBUTEROL 0.083% 2.5 MG/3 ML NEB IH (14:39)
== END 2024-02-14 23:59 ==
LOC: RT 10:06
PROVIDERS: PCP Internal Medicine; Visit Provider Internal Medicine Pulmonary Disease
DX: R06.02 Shortness of breath; I51.7 Cardiomegaly
CPT/HCPCS: 71046; 94060

== ENCOUNTER 2024-03-13 18:25 | Emergency (ER) | payer MEDICARE, MEDICAID, SELFPAY ==
[2024-03-13 18:25] VITALS: BP 147/93; PULSE 83; RESP 18; TEMP 36.9; O2SAT 95; BMI 26.0
--- NOTE | 2024-03-13 18:29 | ED_ITS ---
Discharge Plan Disposition Patient Disposition: Xfer Other Condition: Fair Prescriptions Prescriptions: No Action sennosides-docusate sodium [Senexon-S] 8.6-50 mg tablet 2 tab PO BID tramadol 50 mg tablet 50 mg PO BID Patient Comments: 50 mg orally twice a day simvastatin 40 mg tablet 40 mg PO HS magnesium oxide 400 mg (241.3 mg magnesium) tablet 400 mg PO BID pantoprazole 40 mg tablet,delayed release (DR/EC) 40 mg PO DAILY aspirin 81 mg tablet,chewable 81 mg PO DAILY furosemide 20 mg tablet 20 mg PO DAILY oxybutynin chloride 5 mg tablet 5 mg PO BID Referrals Follow up/Referrals: Dipesh Rivera DO [Primary Care Provider] - See instructions Clinical Impressions Clinical Impression: Multiple fractures of ribs, Closed fracture of pubic ramus Stand Alone Forms Stand Alone Forms: Transfer Record - ED Discharge ED Provider: Madhu Roberts General Adult HPI <DIANA Bush - Last Filed: 03/13/24 20:43> General Chief complaint: Fall Stated complaint: FALL Time Seen by Provider: 03/13/24 18:27 History of Present Illness HPI narrative: According to patient's report she was walking with an aide to the shower room when they both slipped and fell. Patient states she feels like it is her fault that they fell. Patient denies loss of consciousness and reportedly was evaluated at the time, I am not sure by who, and felt there was no injury and thus the patient was not transported for further evaluation elsewhere. As the day wore on no patient has been complaining of right sided primarily back pain that is worsened throughout the day. Hence EMS was called to bring the patient to the hospital for evaluation. On arrival patient denies shortness of breath fever chills hemoptysis hematochezia melena nausea vomiting diarrhea but does endorse significant back pain. Related Data Home Medications Medication Instructions Recorded Confirmed aspirin 81 mg chewable tablet 81 mg PO DAILY 03/13/24 03/13/24 furosemide 20 mg tablet 20 mg PO DAILY 03/13/24 03/13/24 magnesium oxide 400 mg (241.3 mg 400 mg PO BID 03/13/24 03/13/24 magnesium) tablet oxybutynin chloride 5 mg tablet 5 mg PO BID 03/13/24 03/13/24 pantoprazole 40 mg tablet,delayed 40 mg PO DAILY 03/13/24 03/13/24 release sennosides 8.6 mg-docusate sodium 2 tab PO BID 03/13/24 03/13/24 50 mg tablet (Senexon-S) simvastatin 40 mg tablet 40 mg PO HS 03/13/24 03/13/24 tramadol 50 mg tablet 50 mg PO BID 03/13/24 03/13/24 Allergies Allergy/AdvReac Type Severity Reaction Status Date / Time meloxicam [From [facility]] AdvReac Verified 02/19/24 14:27 Penicillins AdvReac Verified 02/19/24 14:27 PFS <DIANA Bush - Last Filed: 03/13/24 20:43> FORMERLY [facility], [facility] Disclaimer: The information contained in this section may have been updated after the patient was seen, as this information can be updated by other users. Medical History Restrictive lung disease Dyspnea on exertion Acute respiratory failure with hypoxia Pneumonia On mechanically assisted ventilation Malnutrition Failure to thrive Constipation Renal failure Incontinence in female Difficulty walking Pressure ulcer Tobacco use Hyperlipidemia Gastroesophageal reflux disease Diabetes mellitus Surgical History No history of previous surgery Family History Other No significant family history Social History Smoking Status: Current every day smoker alcohol intake: never current occupational status: retired Travel in the last 8 weeks: None household members: caregiver housing: [facility] <DIANA Bush - Last Filed: 03/13/24 20:43> ROS Obtained: Yes Systems reviewed as appropriate & no additional complaints except as documented Physical Exam <DIANA Bush - Last Filed: 03/13/24 20:43> General General appearance: alert and in no apparent distress Head Head exam: atraumatic and normal inspection Eye Eye exam: Present normal appearance, PERRL and EOMI ENT ENT exam: Present normal exam, normal oropharynx and mucous membranes moist Neck Neck exam: Present normal inspection, full ROM and lymphadenopathy Chest Chest inspection: Present normal inspection and symmetric chest wall rise; Absent tenderness Respiratory Respiratory exam: Present normal lung sounds bilaterally; Absent respiratory distress, wheezes or accessory muscle use Cardiovascular Cardiovascular exam: Present regular rate, normal rhythm, normal heart sounds, +S1 and +S2 Abdominal Exam Abdominal exam: Present soft and normal bowel sounds; Absent tenderness Extremities Exam Extremities exam: Present normal inspection; Absent full ROM (There is diminished range of motion of her bilateral lower extremities due to back pain) or tenderness Back Exam Back exam: Present normal inspection and tenderness (Patient is tender to palpation on the right and left thoracic and lumbar area bony prominences. I am not able to appreciate any deformities however my exam is limited due to the patient's pain and her inability to move.); Absent full ROM (She has diminished range of motion secondary to pain) Neurological Exam Neurological exam: Present alert, oriented X3 and CN II-XII intact Psychiatric Psychiatric exam: Present normal affect and normal mood Skin Skin exam: Present warm, dry and normal color Medical Decision Making <DIANA Bush - Last Filed: 03/13/24 20:43> Medical Records Medical records reviewed: Yes I reviewed the patient's medical records. Surya Inquiry Pt receiving controlled substance: No Vital Signs: 03/13/24 18:25 03/13/24 18:30 03/13/24 20:30 Temperature 98.4 F Temperature Source Oral Pulse Rate 84 75 Pulse Rate [Radial] 83 Respiratory Rate 18 18 19 Blood Pressure 147/93 H 131/73 Blood Pressure [Right Arm] 147/93 H Blood Pressure Mean [Right Arm] 111 Blood Pressure Source Blood Pressure Source [Right Arm] Automatic Cuff Blood Pressure Position Blood Pressure Position [Right Arm] Sitting 02 Sat by Pulse Oximetry 95 94 L 93 L Oxygen Delivery Method Room Air Room Air Room Air 03/13/24 20:57 Temperature 97.8 F Temperature Source Oral Pulse Rate 72 Pulse Rate [Radial] Respiratory Rate 16 Blood Pressure 136/78 Blood Pressure [Right Arm] Blood Pressure Mean [Right Arm] Blood Pressure Source Automatic Cuff Blood Pressure Source [Right Arm] Blood Pressure Position Supine Blood Pressure Position [Right Arm] 02 Sat by Pulse Oximetry Oxygen Delivery Method Room Air Lab Data Lab results reviewed: Yes I reviewed the patient's lab results. Lab Results 03/13/24 18:45: WBC 14.7 H, RBC 4.24, Hgb 13.0, Hct 40.2, MCV 94.9, MCH 30.7, MCHC 32.4, RDW 14.9, Plt Count 274, MPV 8.1, Neut % (Auto) 83.0 H, Lymph % (Auto) 11.2, [place] % (Auto) 4.0, Eos % (Auto) 1.1, Baso % (Auto) 0.6, Neut # (Auto) 12.2 H, Lymph # (Auto) 1.7, [place] # (Auto) 0.6, Eos # (Auto) 0.2, Baso # (Auto) 0.1, PT 10.7, INR 0.99, Sodium 140, Potassium 4.3, Chloride 106, Carbon Dioxide 29, Anion Gap 9.3, BUN 22 H, Creatinine 1.00, Estimated Creat Clear 49, Estimated GFR 53 L, Est GFR ( Amer) 64, Glucose 130 H, Calcium 9.4, Total Bilirubin 0.9, AST 89 H, ALT 61, Alkaline Phosphatase 83, Total Protein 7.3 D, Albumin 4.1, Globulin 3.2, Albumin/Globulin Ratio 1.3 03/13/24 20:10: Urine Color Yellow, Urine Appearance Cloudy, Urine pH 7.0, Ur Specific [place] 1.015, Urine Protein Negative, Urine Glucose (UA) Negative, Urine Ketones Negative, Urine Blood 1+, Urine Nitrate Negative, Urine Bilirubin Negative, Urine Urobilinogen 0.2, Ur Leukocyte Esterase 2+ A, Urine RBC Occasional, Urine WBC Tntc, Ur Squamous Epith Cells None, Urine Bacteria None 03/13/24 18:45 03/13/24 18:45 Orders (Tests/Meds): ED MEDICATIONS Discontinued Medications Generic Name Dose Route Start Last Admin Trade Name Miguel PRN Reason Stop Dose Admin Acetaminophen 1,000 mg 03/13/24 18:31 03/13/24 18:51 Acetaminophen 1,000mg/100ml Vial IV 03/13/24 18:32 1,000 mg ONCE ONE Administration Dexamethasone Sodium Phosphate 10 mg 03/13/24 18:31 03/13/24 19:14 Dexamethasone 4mg/Ml 1ml Vial IM 03/13/24 18:32 Not Given ONCE ONE Dexamethasone Sodium Phosphate 10 mg 03/13/24 18:49 03/13/24 18:51 Dexamethasone 4mg/Ml 1ml Vial IV 03/13/24 18:50 10 mg ONCE ONE Administration Methocarbamol 500 mg 03/13/24 21:00 03/13/24 20:39 Methocarbamol 500mg Tablet PO 04/12/24 20:59 500 mg BID YARI Administration ORDERS Category Date Time Status CT bony pelvis Stat Cat Scan 03/13/24 18:[address] cervical spine wo con Stat Cat Scan 03/13/24 19:[address] head/brain wo con Stat Cat Scan 03/13/24 18:[address] lumbar spine wo con Stat Cat Scan 03/13/24 18:[address] thoracic spine wo con Stat Cat Scan 03/13/24 18:33 Completed Chest XR -- portable [XR chest portable] Stat Exams 03/13/24 20:43 Completed CBC w/Auto Diff [Complete Blood Count Auto Diff] Stat Lab 03/13/24 18:45 Completed CMP [Comprehensive Metabolic Panel] Stat Lab 03/13/24 18:45 Completed INR [Prothrombin Time INR] Stat Lab 03/13/24 18:45 Completed UA [Urinalysis and Microscopic] Stat Lab 03/13/24 20:10 Completed Urine Culture Stat Micro 03/13/24 20:10 Received Medical Decision Narrative: In summary patient is a 83-year-old female who presents to the emergency department for evaluation of pain after a fall. Patient is hemodynamically stable with a heart rate of 83 and satting at 95% on room air initially on arrival upon arrival, and afebrile. Physical exam is remarkable for tenderness to palpation over much of the lower half of the thoracic and lumbar spines bilaterally, right greater than left,. Exam is limited due to the patient's discomfort. Long bones are intact although range of motion testing the bilateral lower extremities causes pain in the lumbar spinous and thoracic spinous musculature. She is neurovascularly intact distally in all 4 extremities however. No obvious ecchymosis is noted at this time.. Differential diagnosis includes contusion versus strain versus fracture versus bleed versus neurovascular injury etc. Initial workup will be conducted with hematologic labs CT scan of the head and spines along with a plain film chest x-ray. Initial interventions include Toradol Tylenol Decadron. Initial workup reviewed by me shows a stable hematologic labs however she has multiple rib fractures on the right and a left inferior pubic rami fracture. At this point we had a conversation with the [facility] and it appears that instead of a assist to the ground this was a fall with both the aide and the patient going down together.. Given the mechanism I had a conversation about patient management with the [facility] trauma [facility]. Dr. Blackwood has accepted the patient to the [place] emergency department <Madhu Roberts MD - Last Filed: 03/13/24 22:34> Vital Signs: 03/13/24 18:25 03/13/24 18:30 03/13/24 20:30 Temperature 98.4 F Temperature Source Oral Pulse Rate 84 75 Pulse Rate [Radial] 83 Respiratory Rate 18 18 19 Blood Pressure 147/93 H 131/73 Blood Pressure [Right Arm] 147/93 H Blood Pressure Mean [Right Arm] 111 Blood Pressure Source Blood Pressure Source [Right Arm] Automatic Cuff Blood Pressure Position Blood Pressure Position [Right Arm] Sitting 02 Sat by Pulse Oximetry 95 94 L 93 L Oxygen Delivery Method Room Air Room Air Room Air 03/13/24 20:57 Temperature 97.8 F Temperature Source Oral Pulse Rate 72 Pulse Rate [Radial] Respiratory Rate 16 Blood Pressure 136/78 Blood Pressure [Right Arm] Blood Pressure Mean [Right Arm] Blood Pressure Source Automatic Cuff Blood Pressure Source [Right Arm] Blood Pressure Position Supine Blood Pressure Position [Right Arm] 02 Sat by Pulse Oximetry Oxygen Delivery Method Room Air Lab Data Lab Results 03/13/24 18:45: WBC 14.7 H, RBC 4.24, Hgb 13.0, Hct 40.2, MCV 94.9, MCH 30.7, MCHC 32.4, RDW 14.9, Plt Count 274, MPV 8.1, Neut % (Auto) 83.0 H, Lymph % (Auto) 11.2, [place] % (Auto) 4.0, Eos % (Auto) 1.1, Baso % (Auto) 0.6, Neut # (Auto) 12.2 H, Lymph # (Auto) 1.7, [place] # (Auto) 0.6, Eos # (Auto) 0.2, Baso # (Auto) 0.1, PT 10.7, INR 0.99, Sodium 140, Potassium 4.3, Chloride 106, Carbon Dioxide 29, Anion Gap 9.3, BUN 22 H, Creatinine 1.00, Estimated Creat Clear 49, Estimated GFR 53 L, Est GFR ( Amer) 64, Glucose 130 H, Calcium 9.4, Total Bilirubin 0.9, AST 89 H, ALT 61, Alkaline Phosphatase 83, Total Protein 7.3 D, Albumin 4.1, Globulin 3.2, Albumin/Globulin Ratio 1.3 03/13/24 20:10: Urine Color Yellow, Urine Appearance Cloudy, Urine pH 7.0, Ur Specific [place] 1.015, Urine Protein Negative, Urine Glucose (UA) Negative, Urine Ketones Negative, Urine Blood 1+, Urine Nitrate Negative, Urine Bilirubin Negative, Urine Urobilinogen 0.2, Ur Leukocyte Esterase 2+ A, Urine RBC Occasional, Urine WBC Tntc, Ur Squamous Epith Cells None, Urine Bacteria None Orders (Tests/Meds): ED MEDICATIONS Discontinued Medications Generic Name Dose Route Start Last Admin Trade Name Freq PRN Reason Stop Dose Admin Acetaminophen 1,000 mg 03/13/24 18:31 03/13/24 18:51 Acetaminophen 1,000mg/100ml Vial IV 03/13/24 18:32 1,000 mg ONCE ONE Administration Dexamethasone Sodium Phosphate 10 mg 03/13/24 18:31 03/13/24 19:14 Dexamethasone 4mg/Ml 1ml Vial IM 03/13/24 18:32 Not Given ONCE ONE Dexamethasone Sodium Phosphate 10 mg 03/13/24 18:49 03/13/24 18:51 Dexamethasone 4mg/Ml 1ml Vial IV 03/13/24 18:50 10 mg ONCE ONE Administration Methocarbamol 500 mg 03/13/24 21:00 03/13/24 20:39 Methocarbamol 500mg Tablet PO 04/12/24 20:59 500 mg BID YARI Administration ORDERS Category Date Time Status CT bony pelvis Stat Cat Scan 03/13/24 18:[address] cervical spine wo con Stat Cat Scan 03/13/24 19:[address] head/brain wo con Stat Cat Scan 03/13/24 18:[address] lumbar spine wo con Stat Cat Scan 03/13/24 18:[address] thoracic spine wo con Stat Cat Scan 03/13/24 18:33 Completed Chest XR -- portable [XR chest portable] Stat Exams 03/13/24 20:43 Completed CBC w/Auto Diff [Complete Blood Count Auto Diff] Stat Lab 03/13/24 18:45 Completed CMP [Comprehensive Metabolic Panel] Stat Lab 03/13/24 18:45 Completed INR [Prothrombin Time INR] Stat Lab 03/13/24 18:45 Completed UA [Urinalysis and Microscopic] Stat Lab 03/13/24 20:10 Completed Urine Culture Stat Micro 03/13/24 20:10 Received Medical Decision Narrative: In summary patient is a 83-year-old female who presents to the emergency department for evaluation of pain after a fall. Patient is hemodynamically stable with a heart rate of 83 and satting at 95% on room air initially on arrival upon arrival, and afebrile. Physical exam is remarkable for tenderness to palpation over much of the lower half of the thoracic and lumbar spines bilaterally, right greater than left,. Exam is limited due to the patient's discomfort. Long bones are intact although range of motion testing the bilateral lower extremities causes pain in the lumbar spinous and thoracic spinous musculature. She is neurovascularly intact distally in all 4 extremities however. No obvious ecchymosis is noted at this time.. Differential diagnosis includes contusion versus strain versus fracture versus bleed versus neurovascular injury etc. Initial workup will be conducted with hematologic labs CT scan of the head and spines along with a plain film chest x-ray. Initial interventions include Toradol Tylenol Decadron. Initial workup reviewed by me shows a stable hematologic labs however she has multiple rib fractures on the right and a left inferior pubic rami fracture. At this point we had a [facility] with the [facility] and it appears that instead of a assist to the ground this was a fall with both the aide and the patient going down together.. Given the mechanism I had a conversation about patient management with the [facility] trauma center. Dr. Blackwood has accepted the patient to the [place] emergency department. I was consulted by the YURIY, and we discussed the complexity of the problems being addressed. I approved the treatment and management plan for this patient?s care in the Emergency Department, thus performing a substantive portion of the medical decision making. Madhu Roberts MD Critical Care <DIANA Bush - Last Filed: 03/13/24 20:43> Critical Care Time Critical Care Time: No
[2024-03-13 18:30] VITALS: BP 147/93; PULSE 84; RESP 18; O2SAT 94
--- NOTE | 2024-03-13 18:33 | CT_ITS ---
PROCEDURE INFORMATION: Exam: CT Thoracic Spine Without Contrast Exam date and time: 03/13/2024 7:28 PM Age: 83 years old Clinical indication: Injury or trauma; Fall; Blunt trauma (contusions or hematomas); Additional info: Trauma, critical injury suspected TECHNIQUE: Imaging protocol: Computed tomography of the thoracic spine without contrast. Radiation optimization: All CT scans at this facility use at least one of these dose optimization techniques: automated exposure control; mA and/or kV adjustment per patient size (includes targeted exams where dose is matched to clinical indication); or iterative reconstruction. COMPARISON: CT CERVICAL SPINE WO CON 03/13/2024 7:26 PM FINDINGS: Bones/joints: Thoracic spondylosis with multilevel disc degeneration. Chronic posttraumatic deformity left posterior 3rd 4th 5th 6 ribs Soft tissues: Unremarkable. Lungs: Bibasilar atelectasis versus parenchymal scarring. Superimposed patchy airspace opacities. IMPRESSION: Comminuted acute right posterolateral T10 and 11 rib fractures. Subtle right posterior 12th rib fracture also suspected however suboptimally visualized. Posterior right T9 rib fracture could not be excluded.
--- NOTE | 2024-03-13 18:33 | CT_ITS ---
PROCEDURE INFORMATION: Exam: CT Lumbar Spine Without Contrast Exam date and time: 03/13/2024 7:32 PM Age: 83 years old Clinical indication: Injury or trauma; Fall; Blunt trauma (contusions or hematomas); Additional info: Trauma, critical injury suspected TECHNIQUE: Imaging protocol: Computed tomography of the lumbar spine without contrast. Radiation optimization: All CT scans at this facility use at least one of these dose optimization techniques: automated exposure control; mA and/or kV adjustment per patient size (includes targeted exams where dose is matched to clinical indication); or iterative reconstruction. COMPARISON: CT THORACIC SPINE WO CON 03/13/2024 7:28 PM FINDINGS: Bones/joints: Lumbar spondylosis with multilevel disc degeneration. Mild scoliosis of the lumbar spine convexity to the left. Previously demonstrated subtle right T12 and right posterior comminuted T11 rib fracture again partially visualized. Stomach and bowel: Incomplete visualization of fecal impaction with dilatation of the rectosigmoid colon to approximately 8 cm. Soft tissues: Unremarkable. IMPRESSION: 1. No evidence of acute lumbar spine osseous injury. 2. Previously demonstrated subtle right T12 and right posterior comminuted T11 rib fracture again partially visualized.
--- NOTE | 2024-03-13 18:33 | CT_ITS ---
PROCEDURE INFORMATION: Exam: CT Pelvis Without Contrast; Skeletal Exam date and time: 03/13/2024 7:35 PM Age: 83 years old Clinical indication: Injury or trauma; Fall; Blunt trauma (contusions or hematomas); Bilateral; Pelvic region; Additional info: Trauma, critical injury suspected TECHNIQUE: Imaging protocol: Computed tomography of the pelvis without contrast. Exam focused on the skeleton. Radiation optimization: All CT scans at this facility use at least one of these dose optimization techniques: automated exposure control; mA and/or kV adjustment per patient size (includes targeted exams where dose is matched to clinical indication); or iterative reconstruction. COMPARISON: CT LUMBAR SPINE WO CON 03/13/2024 7:32 PM FINDINGS: Stomach: Findings compatible with fecal impaction. Could not exclude developing stercoral colitis. Intestine: Marked amount of retained stool in the region of the rectosigmoid colon. Bones/joints: Status post ORIF left proximal femur. Hardware incompletely visualized however demonstrated portion appears intact. Osteopenia. Fracture of the left inferior pubic ramus. Soft tissues: Unremarkable. Tarlov cyst right lateral aspect 2nd sacral segment. Other findings: Findings best demonstrated on series 3: 88. IMPRESSION: 1. Fracture of the left inferior pubic ramus. 2. Findings compatible with fecal impaction. Could not exclude developing stercoral colitis.
--- NOTE | 2024-03-13 18:33 | CT_ITS ---
PROCEDURE INFORMATION: Exam: CT Head Without Contrast Exam date and time: 03/13/2024 7:23 PM Age: 83 years old Clinical indication: Injury or trauma; Fall; Blunt trauma (contusions or hematomas); Additional info: Trauma, critical injury suspected TECHNIQUE: Imaging protocol: Computed tomography of the head without contrast. Radiation optimization: All CT scans at this facility use at least one of these dose optimization techniques: automated exposure control; mA and/or kV adjustment per patient size (includes targeted exams where dose is matched to clinical indication); or iterative reconstruction. COMPARISON: No relevant prior studies available. FINDINGS: Brain: The brain parenchyma appears unremarkable, with no signs of acute intracranial hemorrhage or significant mass effect. There is hypodensity in the subcortical and periventricular white matter which is technically nonspecific but most often related to chronic microvascular disease. Cerebral ventricles: Mild ventricular enlargement consistent with age-related cerebral atrophy is noted. Paranasal sinuses: Paranasal sinuses show age-appropriate mucosal thickening. Polypoid disease versus retention cyst in the left maxillary sinus. Mastoid air cells: Visualized mastoid air cells are well aerated. Bones/joints: There are no skull fractures or bony lesions. Soft tissues: Unremarkable. IMPRESSION: Presumably age-related and chronic changes without acute intracranial abnormality.
[2024-03-13] MEDS: DEXAMETHASONE 4MG/ML 1ML VIAL 10 MG IV (18:51)
[2024-03-13] MEDS: ACETAMINOPHEN 1,000MG/100ML VIAL 1000 MG IV (18:51)
[2024-03-13 19:04] LABS: Chloride 106 mmol/L (98-107); INR 0.99 (0.9-1.1); Potassium 4.3 mmoL/L (3.5-5.1); Prothrombin Time 10.7 seconds (10.1-12.5); Sodium 140 mmol/L (136-145)
[2024-03-13 19:07] LABS: Alanine Aminotransferase 61 U/L (12-78); Albumin Level 4.1 g/dl (3.5-5.0); Albumin/Globulin Ratio 1.3 (1.1-1.8); Alkaline Phosphatase 83 U/L (38-126); Anion Gap 9.3 mEq/L (5-15); Aspartate Amino Transferase 89 U/L (14-36); Bilirubin,Total 0.9 mg/dl (0.2-1.3); Blood Urea Nitrogen 22 mg/dl (7-17); Carbon Dioxide 29 mmol/L (22.0-30.0); Creatinine Clearance Estimated 49 mL/min (50-200); Estimated Glomerular Filt Rate 53 ml/min (>60); GFR (African American) 64 ML/MIN (>60); Globulin 3.2 g/dL (1.3-3.2); Total Protein,Serum 7.3 g/dl (6.3-8.2)
[2024-03-13 19:08] LABS: Calcium 9.4 mg/dl (8.4-10.2); Glucose 130 mg/dl (74-100)
--- NOTE | 2024-03-13 19:08 | CT_ITS ---
PROCEDURE INFORMATION: Exam: CT Cervical Spine Without Contrast Exam date and time: 03/13/2024 7:26 PM Age: 83 years old Clinical indication: Injury or trauma; Fall; Blunt trauma; Additional info: Fall/trauma TECHNIQUE: Imaging protocol: Computed tomography of the cervical spine without contrast. Radiation optimization: All CT scans at this facility use at least one of these dose optimization techniques: automated exposure control; mA and/or kV adjustment per patient size (includes targeted exams where dose is matched to clinical indication); or iterative reconstruction. COMPARISON: 1. CT HEAD/BRAIN WO CON 03/13/2024 7:[address] ANGIO CHEST PE PROTOCOL 11/16/2023 8:34 AM 3. CR XR CHEST 2V 02/14/2024 11:12 AM FINDINGS: Bones/joints: There is straightening of the normal spinal curvature. The cervical spine shows relatively preserved alignment of the vertebral bodies with no evidence of acute fractures or dislocations. However, age-related degenerative changes are observed, including mild disc space narrowing and osteophyte formation at multiple levels. These findings are consistent with age related degenerative disease. Lungs: Lung apices are normal. Vasculature: There are atherosclerotic calcifications of the carotid bulbs bilaterally. Soft tissues: Unremarkable. IMPRESSION: Multilevel degenerative change without acute injury identified.
[2024-03-13 19:11] LABS: Basophils # 0.1 K/mm3 (0-0.2); Basophils % 0.6 % (0.1-2.0); Eosinophils # 0.2 K/mm3 (0.0-0.4); Eosinophils % 1.1 % (0.1-12.0); Hematocrit 40.2 % (37.0-47.0); Lymphocytes # 1.7 K/mm3 (0.7-4.5); Lymphocytes % 11.2 % (10-50); Mean Corpuscular HGB Conc 32.4 g/dL (31.8-35.4); Mean Corpuscular Hemoglobin 30.7 pg (27.0-31.2); Mean Corpuscular Volume 94.9 fl (81-99); Mean Platelet Volume 8.1 fl (7.4-10.4); Monocytes # 0.6 K/mm3 (0.1-1.0); Neutrophils # 12.2 K/mm3 (1.8-7.8); Platelet Count 274 K/mm3 (142-424); Red Blood Count 4.24 M/mm3 (4.20-5.40); Red Cell Distribution Width 14.9 % (11.5-17.5); White Blood Count 14.7 K/mm3 (4.8-10.8)
[2024-03-13 20:13] LABS: Microscopic, Urine URINE MICROSCOPIC (MICROSCOPIC)
[2024-03-13 20:17] LABS: Appearance,Urine CLOUDY (Clear); Bilirubin,Urine Negative (Negative); Blood, Urine 1+ (Negative); Color,Urine YELLOW (Yellow); Glucose,Urine (UA) Negative (Negative); Ketones,Urine Negative (Negative); Leukocyte Esterase,Urine 2+ (Negative); Nitrate,Urine Negative (Negative); Protein,Urine Negative (Negative); Specific Gravity, Urine 1.015 (1.005-1.030); Urobilinogen,Urine 0.2 EU/dl (0.2)
[2024-03-13 20:30] VITALS: BP 131/73; PULSE 75; RESP 19; O2SAT 93
[2024-03-13 20:36] LABS: RBC,Urine Occasional #/hpf (0-3); WBC,Urine TNTC #/hpf (0-3)
[2024-03-13] MEDS: METHOCARBAMOL 500MG TABLET 500 MG PO (20:39)
--- NOTE | 2024-03-13 20:43 | XR_ITS ---
PROCEDURE INFORMATION: Exam: XR Chest Exam date and time: 03/13/2024 8:44 PM Age: 83 years old Clinical indication: Injury or trauma; Fall; Additional info: Fall, trauma TECHNIQUE: Imaging protocol: Radiologic exam of the chest. Views: 1 view. COMPARISON: CR XR CHEST 2V 02/14/2024 11:12 AM FINDINGS: Lungs: Unremarkable. No consolidation. Subsegmental atelectasis left lung base. Pleural spaces: Unremarkable. No pleural effusion. No pneumothorax. Heart/Mediastinum: Unremarkable. No cardiomegaly. Bones/joints: Osteopenia. IMPRESSION: 1. No acute findings. 2. If there is concern for rib fracture, follow-up with dedicated rib series or computerized tomography.
--- NOTE | 2024-03-13 20:52 | PC.NURSE ---
Report called to [facility]. EMS notified for transport
[2024-03-13 20:57] VITALS: BP 136/78; PULSE 72; RESP 16; TEMP 36.6; O2SAT 95
--- NOTE | 2024-03-22 08:54 | PC.NURSE ---
Addendum entered by Lima Live RN 03/22/24 08:59: confirmed that fax was received Original Note: pt transferred to , final urine culture results faxed to [phone]
== END 2024-03-13 21:10 | disposition other institution (70) ==
PROVIDERS: Physician Assistant; Emergency Provider Emergency Medicine; PCP Internal Medicine
DX: S32.502A Unspecified fracture of left pubis, initial encounter for closed fracture (principal); S22.42XA Multiple fractures of ribs, left side, initial encounter for closed fracture; B96.4 Proteus (mirabilis) (morganii) as the cause of diseases classified elsewhere; W01.10XA Fall on same level from slipping, tripping and stumbling with subsequent striking against unspecified object, initial encounter; E11.9 Type 2 diabetes mellitus without complications; K21.9 Gastro-esophageal reflux disease without esophagitis; E78.5 Hyperlipidemia, unspecified; F17.210 Nicotine dependence, cigarettes, uncomplicated
CPT/HCPCS: 70450; 71045; 72125; 72128; 72131; 72192; 80053; 81001; 85025; 85610; 87086; 96372; 96374; 96375; 99285; J0131

== ENCOUNTER 2024-04-18 13:16 | Outpatient (CLI) | payer MEDICARE, MEDICAID, SELFPAY ==
--- NOTE | 2024-04-18 13:17 | CT_ITS ---
FINAL REPORT CLINICAL HISTORY: Lung nodules FINDINGS: CT CHEST HIGH RESOLUTION 1.[address] axial slices were performed through the chest at 10 mm intervals utilizing high-resolution protocol. Supine inspiration and expiration and prone inspiration high-resolution CT images were obtained. Coronal reformatted images were submitted. This study was performed with techniques to keep radiation doses as low as reasonably achievable (ALARA). Individualized dose reduction techniques using automated exposure control or adjustment of mA and/or kV according to the patient's size were employed. There is no axillary adenopathy. There is no hilar or mediastinal mass or adenopathy. There are moderate coronary artery calcifications. Heart size is normal. There is no pericardial or pleural effusion. There is a pleural-based, nodular opacity in the left lung base measuring 12 mm in greatest dimension. High-resolution images demonstrate no bronchiectasis. There is mild peribronchial thickening which may be due to bronchitis. Expiration images demonstrate no air trapping. On the prone inspiration images the nodule in the left lung base is again identified on image 47 of series 9. There are also, multiple other, smaller nodules which are seen to better advantage. Several in the left lower lobe measure up to 5 mm and are seen on image 34 of series 9. There are a few tiny nodules in the right lower lobe. Limited images of the upper abdomen are unremarkable. IMPRESSION: No evidence of interstitial fibrosis. Multiple nodules in the left lower lung, including a dominant nodule measuring 12 mm. These may be postinflammatory or neoplastic. 3-month follow-up CT chest, including prone imaging, is recommended. Reviewed, Interpreted and Dictated by Javier Sandoval MD Transcribed by Anabel Winters Authenticated and [facility]
== END 2024-04-18 23:59 | disposition home or self-care (01) ==
LOC: RAD 13:17
PROVIDERS: PCP Internal Medicine; Visit Provider Internal Medicine Pulmonary Disease
DX: J84.89 Other specified interstitial pulmonary diseases (principal); R91.8 Other nonspecific abnormal finding of lung field
CPT/HCPCS: 71250

== ENCOUNTER 2024-08-09 14:50 | Outpatient (CLI) | payer MEDICARE, MEDICAID, SELFPAY ==
--- NOTE | 2024-08-09 14:50 | CT_ITS ---
FINAL REPORT TECHNIQUE: Axial images were obtained from the lung apex to the mid abdomen by computed tomography. Coronal reformatted images were obtained. This study was performed with techniques to keep radiation doses as low as reasonably achievable, (ALARA). Individualized dose reduction techniques using automated exposure control or adjustment of mA and/or kV according to the patient''s size were employed. CLINICAL HISTORY: pulmonary nodule COMPARISON: 04/18/2024 FINDINGS: The heart size is normal. There are moderate vascular calcifications in the coronary arteries. There is no pericardial or pleural effusion. There is moderate centrilobular emphysema. The previously noted nodules in the medial left lower lobe measuring up to 6 mm are again seen and appear stable. These are best seen on image 106 of series 3. The previously noted dominant pleural-based 12 mm nodule at the left lung base is again noted. This is best seen on image 169 of series 3 and is also stable. There is mild bibasilar scarring. Limited images of the upper abdomen demonstrate the gallbladder is surgically absent. IMPRESSION: Stable nodules in the medial left lower lobe and pleural-based focus at the left base. Follow-up in 1 year. Reviewed, Interpreted and Dictated by Javier Sandoval MD Transcribed by Shanna Gaytan Authenticated and [facility]
== END 2024-08-09 23:59 | disposition home or self-care (01) ==
LOC: RAD 14:50
PROVIDERS: PCP Family Medicine; Visit Provider Family Medicine
DX: R91.1 Solitary pulmonary nodule (principal)
CPT/HCPCS: 71250

== ENCOUNTER 2024-08-25 12:59 | Emergency (ER) | payer MEDICARE, MEDICAID, SELFPAY ==
[2024-08-25] VITALS (14 sets, daily range): BP systolic 107–143; BP diastolic 59–81; PULSE 61–74; RESP 16–20; TEMP 36.5–36.7; O2SAT 94–98; BMI 26.4
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
--- NOTE | 2024-08-25 13:36 | HMH.EDGENADL ---
Discharge Plan Disposition Chief Complaint: Fall Prescriptions Prescriptions: No Action mirtazapine [Remeron] 15 mg tablet 15 mg PO DAILY Qty: 90 3RF coQ10 (ubiquinol) [Qunol Mainor CoQ10] 100 mg capsule 100 mg PO BID Qty: 180 3RF tramadol 50 mg tablet 100 mg PO BID Qty: 120 2RF sennosides-docusate sodium [Senexon-S] 8.6-50 mg tablet 2 tab PO BID simvastatin 40 mg tablet 40 mg PO HS magnesium oxide 400 mg (241.3 mg magnesium) tablet 400 mg PO BID pantoprazole 40 mg tablet,delayed release (DR/EC) 40 mg PO DAILY aspirin 81 mg tablet,chewable 81 mg PO DAILY furosemide 20 mg tablet 20 mg PO DAILY oxybutynin chloride 5 mg tablet 5 mg PO BID Referrals Follow up/Referrals: Ismael Powell MD [Primary Care Provider] - See instructions Activity Restrictions/Add. Instructions Additional Instructions/Restrictions: After 6 hours of observation and repeat CT scan there is no evidence of a clinically significant intracranial hemorrhage. There is a very small punctate questionable hemorrhagic contusion of the cerebrum. Repeat CT scan did not show any progressive worsening. Also her clinical status was unchanged over extended period of time. Please have her come back to the emergency department with any changes in mental status persistent nausea vomiting or other concerns. Otherwise no emergent medical condition identified. Clinical Impressions Clinical Impression: Fall, Hematoma of frontal scalp, Focal hemorrhagic contusion of cerebrum Print Language Print Language: [place] Island[place] Discharge ED Provider: Tyra Contreras General Adult HPI <Tyra Contreras DO - Last Filed: 08/25/24 16:26> General Chief complaint: Fall Stated complaint: FALL Time Seen by Provider: 08/25/24 13:05 Mode of Arrival: EMS Source of Information: Patient and EMS Limitations: No Limitations Description of Symptoms (Recalled from ER Triage Doc. by RN): fell in her room reaching for a basin on the floor. abrasion to head and left wrist/arm pain History of Present Illness HPI narrative: This patient is an 83-year-old female with a history of diabetes, hypertension, hyperlipidemia, GERD, and chronic use of aspirin presenting to the emergency department for evaluation with concern for head injury and left arm injury. Patient reports that she was leaning forward while sitting in her wheelchair to get something out of the floor in front of her when she tipped forward. She hit her head but did not lose consciousness. She states her left arm had already been hurting but now her left wrist is hurting. She denies any other concerns or complaints and states she was feeling fine prior to this. No numbness, tingling, or other concerns. Related Data Home Medications ?Medication ?Instructions ?Recorded ?Confirmed aspirin 81 mg chewable tablet 81 mg PO DAILY 03/13/24 07/25/24 furosemide 20 mg tablet 20 mg PO DAILY 03/13/24 07/25/24 magnesium oxide 400 mg (241.3 mg 400 mg PO BID 03/13/24 07/25/24 magnesium) tablet oxybutynin chloride 5 mg tablet 5 mg PO BID 03/13/24 07/25/24 pantoprazole 40 mg tablet,delayed 40 mg PO DAILY 03/13/24 07/25/24 release sennosides 8.6 mg-docusate sodium 2 tab PO BID 03/13/24 07/25/24 50 mg tablet (Senexon-S) simvastatin 40 mg tablet 40 mg PO HS 03/13/24 07/25/24 Previous Rx's ?Medication ?Instructions ?Recorded mirtazapine 15 mg tablet (Remeron) 15 mg PO DAILY #90 tabs 06/18/24 coQ10 (ubiquinol) 100 mg capsule 100 mg PO BID #180 caps 07/02/24 (Qunol Mainor CoQ10) tramadol 50 mg tablet 100 mg (2 x 50 mg) PO BID #120 tabs 08/13/24 Allergies Allergy/AdvReac Type Severity Reaction Status Date / Time meloxicam [From Mobic] AdvReac Verified 07/25/24 08:02 Penicillins AdvReac Verified 07/25/24 08:02 [facility] <Tyra Contreras DO - Last Filed: 08/25/24 16:26> [facility] Disclaimer: The information contained in this section may have been updated after the patient was seen, as this information can be updated by other users. Medical History Pulmonary nodule 1 cm or greater in diameter Edema of both lower extremities Aspiration pneumonia Multiple fractures of ribs Closed fracture of pubic ramus Pulmonary emphysema Urinary tract infection Restrictive lung disease Dyspnea on exertion Acute respiratory failure with hypoxia Pneumonia On mechanically assisted ventilation Malnutrition Failure to thrive Constipation Renal failure Incontinence in female Difficulty walking Pressure ulcer Tobacco use Hyperlipidemia Gastroesophageal reflux disease Diabetes mellitus Surgical History No history of previous surgery Family History Other No significant family history Social History Smoking Status: Never smoker alcohol intake: never current occupational status: retired Travel in the last 8 weeks: None household members: caregiver housing: [facility] Other Medical History Have you received the Flu Vaccine for this season: No Have you received the Pneumonia Vaccine: No <Tyra Contreras DO - Last Filed: 08/25/24 16:26> ROS Obtained: Yes All systems reviewed & no additional complaints except as documented Physical Exam <Tyra Contreras DO - Last Filed: 08/25/24 16:26> General General appearance: alert and in no apparent distress Head Head exam: normocephalic and other (Hematoma to left forehead) Eye Eye exam: Present normal appearance, PERRL and EOMI ENT ENT exam: Present normal exam, normal oropharynx, mucous membranes moist and normal external ear exam Neck Neck exam: Present normal inspection, full ROM and trachea midline; Absent tenderness Chest Chest inspection: Present normal inspection and symmetric chest wall rise; Absent tenderness Respiratory Respiratory exam: Present normal lung sounds bilaterally; Absent respiratory distress, wheezes, stridor or accessory muscle use Cardiovascular Cardiovascular exam: Present regular rate and normal rhythm Abdominal Exam Abdominal exam: Present soft; Absent distention, tenderness or guarding Extremities Exam Extremities exam: Present full ROM, tenderness (Left mid upper arm, left wrist), normal capillary refill and other (Tenderness to palpation of the left upper extremity with some bruising but scattered. Superficial skin tear to the left elbow. All compartments soft. Neurovascularly intact distally); Absent edema Back Exam Back exam: Present normal inspection and full ROM; Absent tenderness Neurological Exam Neurological exam: Present alert, oriented X3 and CN II-XII intact; Absent motor sensory deficit Psychiatric Psychiatric exam: Present normal affect and normal mood Skin Skin exam: Present warm and dry Medical Decision Making <Tyra Contreras DO - Last Filed: 08/25/24 16:26> Medical Records Medical records reviewed: Yes I reviewed the patient's medical records. Screening: Per USPSTF and CDC recommendations, given the prevalence of disease in our region, it is our hospital?s policy to screen for HIV and viral Hepatitis for all patients aged 18 and over and those with ongoing risk factors. Surya Inquiry Pt receiving controlled substance: No Vital Signs: 08/25/24 12:59 08/25/24 13:00 08/25/24 13:30 Temperature 98.1 F Temperature Source Oral Pulse Rate Pulse Rate [Right] 71 Respiratory Rate 18 Blood Pressure 143/70 H 117/59 L Blood Pressure [Right Arm] 143/70 H Blood Pressure Mean 90 78 Blood Pressure Mean [Right Arm] 94 02 Sat by Pulse Oximetry 95 96 95 Oxygen Delivery Method Room Air Room Air Room Air 08/25/24 14:30 08/25/24 15:00 08/25/24 15:30 Temperature Temperature Source Pulse Rate 73 72 74 Pulse Rate [Right] Respiratory Rate Blood Pressure 110/70 119/61 111/68 Blood Pressure [Right Arm] Blood Pressure Mean 82 87 84 Blood Pressure Mean [Right Arm] 02 Sat by Pulse Oximetry 95 95 95 Oxygen Delivery Method Room Air Room Air Room Air 08/25/24 16:00 08/25/24 16:30 08/25/24 17:00 Temperature Temperature Source Pulse Rate 68 71 62 Pulse Rate [Right] Respiratory Rate Blood Pressure 123/63 107/74 L 127/81 Blood Pressure [Right Arm] Blood Pressure Mean 76 85 96 Blood Pressure Mean [Right Arm] 02 Sat by Pulse Oximetry 97 94 L 98 Oxygen Delivery Method Room Air Room Air Room Air 08/25/24 17:30 08/25/24 18:00 08/25/24 18:32 Temperature Temperature Source Pulse Rate 61 69 67 Pulse Rate [Right] Respiratory Rate 18 20 Blood Pressure 128/70 110/70 137/80 Blood Pressure [Right Arm] Blood Pressure Mean 97 90 100 Blood Pressure Mean [Right Arm] 02 Sat by Pulse Oximetry 96 96 96 Oxygen Delivery Method Room Air Room Air Room Air 08/25/24 19:00 Temperature Temperature Source Pulse Rate 67 Pulse Rate [Right] Respiratory Rate 20 Blood Pressure 118/74 Blood Pressure [Right Arm] Blood Pressure Mean 92 Blood Pressure Mean [Right Arm] 02 Sat by Pulse Oximetry 96 Oxygen Delivery Method Lab Data Lab results reviewed: Yes I reviewed the patient's lab results. Orders (Tests/Meds): ORDERS Category Date Time Status CT cervical spine wo con Stat Cat Scan 08/25/24 13:[address] head/brain wo con Stat Cat Scan 08/25/24 13:[address] head/brain wo con Stat Cat Scan 08/25/24 19:35 Taken Elbow XR left mininum 3 views [XR elbow LT min 3V] Stat Exams 08/25/24 13:35 Completed Forearm XR left 2 views [XR forearm LT 2V] Stat Exams 08/25/24 13:35 Completed Hand XR left minimum 3 views [XR hand LT min 3V] Stat Exams 08/25/24 13:35 Completed Humerus XR left [XR humerus LT] Stat Exams 08/25/24 13:35 Completed Wrist XR left minimum 3 views [XR wrist LT min 3V] Stat Exams 08/25/24 13:35 Completed Medical Decision Narrative: In summary, this patient is a 83-year-old female presenting to the Emergency Department for evaluation of head pain and left arm pain after a mechanical ground-level fall. Differential diagnoses considered include but are not limited to fracture, contusion, strain/brain, intracranial hemorrhage. Ruling out the most morbid conditions drove assessment. It should be noted patient's history includes hypertension, hyperlipidemia, diabetes which may not be at goal therapy. This complicates all aspects of care by increasing patient's risk for morbidity. I reviewed patient's past medical records and noted use of aspirin. On exam, the patient is lying in bed in no acute distress. She is a superficial hematoma to her left forehead as well as some scattered bruising and skin tear of her left upper extremity. She is neurovascularly intact distally and she is alert and oriented x 4 with GCS of 15. Workup included CT head and cervical spine as well as x-rays of the injured left upper extremity. At this time based on reassuring exam, I do not feel that other workup or imaging is indicated. I independently interpreted CT prior to the radiologist read and noted scalp hematoma. Please see their read for final interpretation. Radiology noted concerns for brain contusion, however I did not appreciate this on my independent interpretation of the scan. no acute fracture of the left upper extremity. On reassessment, the patient remains at her neurologic baseline. Brain injury guideline category 1 given very low risk bleed. I did call to consult with [facility] Dr. Manning in transfer center and Dr. Bui with neurosurgery to see if they recommend extended period of observation. They are awaiting imaging via [email or web address]. Overall, very low risk injury. Patient care signed out to Dr. Morris pending continued observation. <Bakari Morris MD - Last Filed: 08/25/24 19:25> Vital Signs: 08/25/24 12:59 08/25/24 13:00 08/25/24 13:30 Temperature 98.1 F Temperature Source Oral Pulse Rate Pulse Rate [Right] 71 Respiratory Rate 18 Blood Pressure 143/70 H 117/59 L Blood Pressure [Right Arm] 143/70 H Blood Pressure Mean 90 78 Blood Pressure Mean [Right Arm] 94 02 Sat by Pulse Oximetry 95 96 95 Oxygen Delivery Method Room Air Room Air Room Air 08/25/24 14:30 08/25/24 15:00 08/25/24 15:30 Temperature Temperature Source Pulse Rate 73 72 74 Pulse Rate [Right] Respiratory Rate Blood Pressure 110/70 119/61 111/68 Blood Pressure [Right Arm] Blood Pressure Mean 82 87 84 Blood Pressure Mean [Right Arm] 02 Sat by Pulse Oximetry 95 95 95 Oxygen Delivery Method Room Air Room Air Room Air 08/25/24 16:00 08/25/24 16:30 08/25/24 17:00 Temperature Temperature Source Pulse Rate 68 71 62 Pulse Rate [Right] Respiratory Rate Blood Pressure 123/63 107/74 L 127/81 Blood Pressure [Right Arm] Blood Pressure Mean 76 85 96 Blood Pressure Mean [Right Arm] 02 Sat by Pulse Oximetry 97 94 L 98 Oxygen Delivery Method Room Air Room Air Room Air 08/25/24 17:30 08/25/24 18:00 08/25/24 18:32 Temperature Temperature Source Pulse Rate 61 69 67 Pulse Rate [Right] Respiratory Rate 18 20 Blood Pressure 128/70 110/70 137/80 Blood Pressure [Right Arm] Blood Pressure Mean 97 90 100 Blood Pressure Mean [Right Arm] 02 Sat by Pulse Oximetry 96 96 96 Oxygen Delivery Method Room Air Room Air Room Air 08/25/24 19:00 Temperature Temperature Source Pulse Rate 67 Pulse Rate [Right] Respiratory Rate 20 Blood Pressure 118/74 Blood Pressure [Right Arm] Blood Pressure Mean 92 Blood Pressure Mean [Right Arm] 02 Sat by Pulse Oximetry 96 Oxygen Delivery Method Orders (Tests/Meds): ORDERS Category Date Time Status CT cervical spine wo con Stat Cat Scan 10/06/24 13:[address] head/brain wo con Stat Cat Scan 08/25/24 13:[address] head/brain wo con Stat Cat Scan 08/25/24 19:35 Taken Elbow XR left mininum 3 views [XR elbow LT min 3V] Stat Exams 08/25/24 13:35 Completed Forearm XR left 2 views [XR forearm LT 2V] Stat Exams 08/25/24 13:35 Completed Hand XR left minimum 3 views [XR hand LT min 3V] Stat Exams 08/25/24 13:35 Completed Humerus XR left [XR humerus LT] Stat Exams 08/25/24 13:35 Completed Wrist XR left minimum 3 views [XR wrist LT min 3V] Stat Exams 08/25/24 13:35 Completed Medical Decision Narrative: In summary, this patient is a 83-year-old female presenting to the Emergency Department for evaluation of head pain and left arm pain after a mechanical ground-level fall. Differential diagnoses considered include but are not limited to fracture, contusion, strain/brain, intracranial hemorrhage. Ruling out the most morbid conditions drove assessment. It should be noted patient's history includes hypertension, hyperlipidemia, diabetes which may not be at goal therapy. This complicates all aspects of care by increasing patient's risk for morbidity. I reviewed patient's past medical records and noted use of aspirin. On exam, the patient is lying in bed in no acute distress. She is a superficial hematoma to her left forehead as well as some scattered bruising and skin tear of her left upper extremity. She is neurovascularly intact distally and she is alert and oriented x 4 with GCS of 15. Workup included CT head and cervical spine as well as x-rays of the injured left upper extremity. At this time based on reassuring exam, I do not feel that other workup or imaging is indicated. I independently interpreted CT prior to the radiologist read and noted scalp hematoma. Please see their read for final interpretation. Radiology noted concerns for brain contusion, however I did not appreciate this on my independent interpretation of the scan. no acute fracture of the left upper extremity. On reassessment, the patient remains at her neurologic baseline. Brain injury guideline category 1 given very low risk bleed. I did call to consult with [facility] Dr. Manning in transfer center and Dr. Bui with neurosurgery to see if they recommend extended period of observation. They are awaiting imaging via [email or web address]. Overall, very low risk injury. Patient care signed out to Dr. Morris pending continued observation. Reassessment this is Dr. Morris I took over from Dr. Contreras at 4:38 PM. I personally interpreted the patient's images and I do not appreciate any significant bleeding or any obvious contusion intracranially. I reassessed the patient she has a GCS of 15 nonfocal neurologic exam she has been here 3-1/2 hours at this point. She is specifically asking to go back to the [facility] and she wants to eat and drink and smoke. I was able to convince her to stay few more hours for observation and to have a repeat CT scan to ensure that there has not been any progressive worsening. At this point she does not need any neurosurgical intervention I do not need to speak with with her consultants at the moment. If she has any expanding hematoma or anything more than what is at most punctate I will give him a call. She has been placed in ED observation pending the results of that study Reassessment 7:25 PM patient clinically remains unchanged she is awake alert oriented GCS of 15 nonfocal neurologic exam she states she feels very well. CT scan was repeated which shows no evidence of any expanding hematoma at this point patient is stable to go home she does not need neurosurgical intervention nor does she need intensive ICU management. Return precautions emphasized patient was discharged in stable condition. Critical Care <Tyra Contreras, DO - Last Filed: 08/25/24 16:26> Critical Care Time Critical Care Time: No
--- NOTE | 2024-08-25 13:57 | PC.NURSE ---
PT TO CT
--- NOTE | 2024-08-25 14:18 | PC.NURSE ---
PT RETURNED FROM CT
--- NOTE | 2024-08-25 15:07 | PC.NURSE ---
DR OSORIO SPEAKING WITH [facility]
--- NOTE | 2024-08-25 15:24 | PC.NURSE ---
Called [facility] to consult with neurosurgeon per Dr. Contreras. [facility] said they would give us a call back.
--- NOTE | 2024-08-25 15:29 | PC.NURSE ---
DR OSORIO SPEAKING WITH [facility]
--- NOTE | 2024-08-25 18:05 | PC.NURSE ---
ROUNDED ON PT, CALL LIGHT WITHIN REACH. UPDATED ON POC
--- NOTE | 2024-08-25 18:14 | PC.NURSE ---
PT TO CT
--- NOTE | 2024-08-25 19:25 | PC.NURSE ---
pt back from ct scan. Dr. Morris reviewed ct scan and no evidence of expanding bleeding. Dr. Morris states pt is ready to d/c home.
--- NOTE | 2024-08-25 19:34 | PC.NURSE ---
Report called to Nelda DIAZ at [facility]
--- NOTE | 2024-08-25 19:35 | CT_ITS ---
PROCEDURE INFORMATION: Exam: CT Head Without Contrast Exam date and time: 08/25/2024 7:17 PM Age: 83 years old Clinical indication: Injury or trauma; Fall; Blunt trauma (contusions or hematomas); Consciousness not specified; Additional info: Repeat CT to evaluate for worsening bleed TECHNIQUE: Imaging protocol: Computed tomography of the head without contrast. Radiation optimization: All CT scans at this facility use at least one of these dose optimization techniques: automated exposure control; mA and/or kV adjustment per patient size (includes targeted exams where dose is matched to clinical indication); or iterative reconstruction. COMPARISON: CT HEAD/BRAIN WO CON 08/25/2024 2:14 PM FINDINGS: Brain: Persistent subtle region of increased density in the subcortical thomas matter of the left temporal lobe. These findings appear stable in size compared with the previous study, and again suggestive of subtle region of hemorrhagic contusion. Cerebral ventricles: No ventriculomegaly. Paranasal sinuses: Visualized sinuses are unremarkable. No fluid levels. Mastoid air cells: Visualized mastoid air cells are well aerated. Bones: Unremarkable. No acute fracture. Soft tissues: persistent scalp hematoma superficial to the left frontal bone. Findings appear to have slightly decreased in size compared with the previous study. IMPRESSION: 1. Persistent scalp hematoma superficial to the left frontal bone. Findings appear to have slightly decreased in size compared with the previous study. 2. Persistent subtle region of increased density in the subcortical thomas matter of the left temporal lobe. These findings appear stable in size compared with the previous study, and again suggestive of subtle region of hemorrhagic contusion.
== END 2024-08-25 21:09 | disposition home or self-care (01) ==
PROVIDERS: Emergency Provider Emergency Medicine; PCP Family Medicine
DX: S00.03XA Contusion of scalp, initial encounter (principal); S09.90XA Unspecified injury of head, initial encounter; W05.0XXA Fall from non-moving wheelchair, initial encounter; Y93.89 Activity, other specified; Y92.9 Unspecified place or not applicable
CPT/HCPCS: 70450; 72125; 73060; 73080; 73090; 73110; 73130; 99284

== ENCOUNTER 2025-04-17 13:09 | Outpatient (CLI) | payer MEDICARE, MEDICAID, SELFPAY ==
[2025-04-17] MEDS: IPRATROPIUM/ALBUTEROL 3 ML NEB IH (13:53)
== END 2025-04-17 23:59 | disposition home or self-care (01) ==
LOC: RT 13:10
PROVIDERS: PCP Family Medicine; Visit Provider Internal Medicine Pulmonary Disease
DX: J44.9 Chronic obstructive pulmonary disease, unspecified (principal); J43.9 Emphysema, unspecified
CPT/HCPCS: 94010

== ENCOUNTER 2025-07-09 06:59 | Outpatient (CLI) | payer MEDICARE, MEDICAID, SELFPAY ==
--- OUTSIDE RECORDS SUMMARY | 2025-07-09 07:01 | XMS_ITS | Clinical Summary ---
Author Organization [facility] Address [address] [place] [address] Phone Care Team Providers Care Line Maintainer Name Role Phone Unavailable Primary Care Provider Unavailabl e Allergies No known active allergies Medications * This document contains information received from the source organization and may not represent a complete record from that organization. No known medications Active Problems No known active problems Medical History Medical History Date Comments Adult failure to thrive Type 2 diabetes mellitus without complications ( HCC) Moderate protein-calorie malnutrition Mixed hyperlipidemia Vitamin D deficiency Essential (primary) hypertension Age-related osteoporosis without current patholo gical fracture GERD (gastroesophageal reflux disease) Social History Tobacco Use Types Packs/Day Years Used Date Smoking Tobacco: Every Day Cigarettes Smokeless Tobacco: Never Tobacco Cessation:Ready to Q uit: No; Counseling Given: No Alcohol Use Standard Drinks/Week Comments Not Currently 0 (1 standard drink = 0.6 oz pur e alcohol) Comments Unknown Sex and Gender Information Value Date Recorded Sex Assigned at Not on file Legal Sex Female 3:38 PM EDT Gender Identity Not on file Sexual Orientation Not on file Obstetrics History Plan of Treatment Health Maintenance Due Date Last Done Comments Wellness Exam Medicare 1943 DTaP/TDaP/Td (1 - Tdap) 1959 Pneumococcal Vaccine 50+ (1 of 2 - PCV) 1959 Zoster (1 of 2) 1990 Bone Density Screening 2005 RSV or 60+ (1 - 1-d ose 75+ series) 2015 COVID-19 Vaccine ( - 2023-2 5 season) 2024 Influenza Vaccine (#1) 2025 Hepatitis B Vaccine Aged Out No longe r eligible based on patient's age to complete this topic Meningococcal B Vaccine Aged Out No l onger eligible based on patient's age to complete this topic Insurance [place] [address] [employer] MEDIC[employer] HMO [place] [address] [place]
[2025-07-09 07:23] LABS: Hematocrit 36.0 % (37.0-47.0); Hemoglobin 11.8 g/dL (12.2-16.2); Mean Corpuscular HGB Conc 32.8 g/dL (31.8-35.4); Mean Corpuscular Hemoglobin 31.0 pg (27.0-31.2); Mean Corpuscular Volume 94.5 fl (81-99); Platelet Count 216 K/mm3 (142-424); Red Blood Count 3.81 M/mm3 (4.20-5.40); White Blood Count 6.8 K/mm3 (4.8-10.8)
[2025-07-09 07:48] LABS: Hemoglobin A1C 5.9 % (4.0-6.0)
[2025-07-09 08:08] LABS: Albumin Level 3.9 g/dl (3.5-5.0); Chloride 110 mmol/L (98-107); Potassium 4.2 mmoL/L (3.5-5.1); Sodium 141 mmol/L (136-145)
[2025-07-09 08:10] LABS: Alanine Aminotransferase 18 U/L (12-78); Aspartate Amino Transferase 24 U/L (14-36); Blood Urea Nitrogen 19 mg/dl (7-17); Creatinine,Serum 0.50 mg/dl (0.52-1.04); Estimated Glomerular Filt Rate 118 ml/min (>60); GFR (African American) 142 ML/MIN (>60)
[2025-07-09 08:11] LABS: Albumin/Globulin Ratio 1.8 (1.1-1.8); Alkaline Phosphatase 102 U/L (38-126); Anion Gap 11.2 mEq/L (5-15); Bilirubin,Total 0.7 mg/dl (0.2-1.3); Calcium 9.2 mg/dl (8.4-10.2); Carbon Dioxide 24 mmol/L (22.0-30.0); Cholesterol 134 mg/dl (140-200); Globulin 2.2 g/dL (1.3-3.2); Glucose 85 mg/dl (74-100); HDL Cholesterol 98 mg/dl (40-60); Total Protein,Serum 6.1 g/dl (6.3-8.2); Triglycerides 41 mg/dl (30-150)
[2025-07-09 08:30] LABS: Free T4 (Free Thyroxine) 1.02 ng/dl (0.78-2.19)
[2025-07-09 08:42] LABS: Thyroid Stimulating Hormone 2.74 uIU/mL (0.465-4.68)
[2025-07-09 09:00] LABS: Hepatitis C Ab Qual. W/ RFX NEGATIVE (Negative)
[2025-07-09 09:29] LABS: Total Cells Counted 100
[2025-07-09 09:30] LABS: RBC Morphology Normal
== END 2025-07-09 23:59 | disposition home or self-care (01) ==
PROVIDERS: PCP Nurse Practitioner Family; Visit Provider Nurse Practitioner Family
DX: E78.5 Hyperlipidemia, unspecified (principal); K21.9 Gastro-esophageal reflux disease without esophagitis; Z13.1 Encounter for screening for diabetes mellitus
CPT/HCPCS: 36415; 80053; 80061; 83036; 84439; 84443; 85007; 85014; 85018; 85048; 85049; 86803; 87389

== ENCOUNTER 2025-10-28 09:09 | Day surgery (SDC) | payer MEDICARE, MEDICAID, SELFPAY ==
[2025-10-28] VITALS (7 sets, daily range): BP systolic 129–153; BP diastolic 67–88; PULSE 55–64; RESP 14–16; TEMP 36.2–36.6; O2SAT 97–98; BMI 27.9
[2025-10-28] MEDS: PHENYLEPHRINE 2.5% OPHTH SOLN 2ML OP ×3 (10:01→10:03)
[2025-10-28] MEDS: TETRACAINE 0.5% OPTH SOL 15ML OP ×3 (10:02→10:03)
[2025-10-28] MEDS: CYCLOPENTOLATE 2% OPHTH SOLN 2ML BOTTLE OP ×3 (10:02→10:03)
[2025-10-28] MEDS: LIDOCAINE 1% PF 2ML VIAL 2 ML IJ (11:31)
[2025-10-28] MEDS: MIDAZOLAM 2MG/2ML VIAL 1 MG IV (11:31)
[2025-10-28] MEDS: TOBRAMYCIN/DEX OPTH SUSP 2.5ML OP (11:32)
[2025-10-28] MEDS: TIMOLOL 0.5% OPTH SOLN 5ML OP (11:33)
--- NOTE | 2025-10-28 13:17 | HMH.PROCNOTE ---
[facility] Procedure Note Date: 10/28/25 Time: 13:17 Procedure Note:: Preoperative Diagnosis: Cataract combined NS Cortical Complex [Right] Eye Postop diagnosis: same Operation: Microscopic phacoemulsification with intraocular lens implant [Right] Eye Specimen: None Blood Loss: None The patient was examined in the office with a complaint of poor vision in the [right] eye. The patient reports that this interferes with ADLs such as reading, watching TV and/or driving or the vision is like looking through a foggy haze and is very troubling. The patient was examined and found to have a visually significant cataract with best corrected vision of [20/400] by refraction and/or glare testing. Treatment options, risks and benefits were explained and the patient elected to have cataract surgery in an attempt to improve their vision. The patient had the eye anesthetized with topical tetracaine, the eye ways prepped and draped in the usual fashion for cataract surgery. A paracentesis and a temporal keratotomy were made. 0.2cc of 1% lidocaine PF was placed into the anterior chamber. And aqueous/viscoelastic exchange was done and a 360 degree capsulorexis was performed. Through hydrodissection and delineation with BSS on a cannula was done. The lens nucleus was phecoemulsified with CDE of [13.13]. Residual cortical material was removed using automated I&A The capsular bag was deepened with viscoelastica and a PCIOL was placed in the capsular bag with good centration and stability. Residual viscoelastic was removed using automated I&A. The keratotomy incision was hydrated with BSS on a cannula. The wound were checked and found to be water tight. IOP was checked digitally and adjusted as needed so as not to be too high. 1 drop of timolol 0.5%, ofloxacin, prednisolone acetate and ketorolac was instilled and eye shield taped over the eye. The patient was taken to recovery in good condition and will be seen postoperatively.
== END 2025-10-28 12:00 | disposition home or self-care (01) ==
PROVIDERS: PCP Family Medicine; Visit Provider Ophthalmology
DX: H25.811 Combined forms of age-related cataract, right eye (principal); H02.836 Dermatochalasis of left eye, unspecified eyelid; H02.833 Dermatochalasis of right eye, unspecified eyelid; Z88.6 Allergy status to analgesic agent; Z88.0 Allergy status to penicillin
CPT/HCPCS: 66984; J2250; V2632